=== PATIENT | male | born 1990 | race Caucasian/White ===

== ENCOUNTER 2020-09-02 18:26 | Outpatient (REF) | payer OTHER, SELFPAY ==
--- NOTE | 2020-09-02 18:29 | MR_ITS ---
EXAMINATION: MR LUMBAR SPINE WITHOUT CONTRAST CLINICAL INFORMATION: Back pain. Difficulty walking at times. COMPARISON: X-ray from 04/01/2019. TECHNIQUE: MRI of the lumbar spine was obtained using routine sequences without contrast. FINDINGS: VERTEBRAL BODIES AND PARASPINAL STRUCTURES: There is a mild leftward curvature of the lumbar spine. There is significant right lateral disc space narrowing with endplate Schmorl's nodes at L3-L4. Chronic and mild edematous endplate changes also evident at the L3-L4 level which is situated at the apex of the leftward spinal curvature. There is reduced intradiscal signal with mild disc space narrowing at L2-L3. Mildly reduced intradiscal signal also evident at L4-L5 and L5-S1. The remainder of the marrow signal is homogeneous. No anterior subluxations visible. The paraspinal soft tissues are unremarkable. The imaged bony pelvis is normal. CONUS MEDULLARIS AND CAUDA EQUINA: Normal, terminating at the level of L1. No lower cord signal abnormality is seen. The cauda equina nerve roots are normal. SPINAL LEVELS: L1-L2: Well-hydrated normal appearance of the disc without central canal stenosis or foraminal narrowing. L2-L3: Mild retrosubluxation and generalized disc bulge with a shallow, broad-based central disc protrusion mildly impressing upon the ventral thecal sac. No central canal stenosis or significant foraminal narrowing. L3-L4: Retrosubluxation and significant degenerative endplate changes lateralized to the right side. Diffuse disc bulge present with mild facet arthropathy and mild central canal stenosis. A right paracentral disc protrusion distorts the ventral thecal sac and contributes to mass effect upon the right L4 nerve root laterally in the subarticular zone. Osseous spurring and bulging disc result in moderate right foraminal encroachment and mild distortion of the exiting right L3 nerve root. L4-L5: Mild disc degeneration and broad-based, shallow central disc protrusion with an underlying annular fissure/tear. The disc protrusion mildly impresses upon the ventral thecal sac and contributes to mass effect upon the L5 nerve root in the subarticular zones. Hypertrophic facet arthropathy without central canal stenosis. Mild bilateral foraminal narrowing. L5-S1: Posterior annular fissure and mild disc bulge present without central canal stenosis. Hypertrophic facet arthropathy mildly encroaching upon the left subarticular zone. Mild left foraminal narrowing. MR/MR lumbar spine wo con IMPRESSION: Mild leftward curvature of the lumbar spine centered at L3-L4 where there is severe right lateral disc space narrowing and degenerative endplate changes. A right paracentral disc protrusion distorts the ventral thecal sac and results in mass effect upon the right L4 nerve root. Mild central canal stenosis. Bulging disc and osseous spurring with moderate right foraminal encroachment and mild distortion of the right L3 nerve root. Broad-based shallow central disc protrusion with an underlying annular tear at L4-L5. Disc protrusion results in mass effect upon the L5 nerve root in the subarticular zones. Shallow broad-based central disc protrusion at L2-L3 with a mild retrosubluxation. Mild spondylosis at L5-S1 with a posterior disc bulge and underlying annular fissure.
== END 2020-09-02 18:27 | disposition home or self-care (01) ==
LOC: HO.MRI 18:26
PROVIDERS: Visit Provider Physician Assistant
DX: M47.16 Other spondylosis with myelopathy, lumbar region (principal)
CPT/HCPCS: 72148

== ENCOUNTER 2020-10-23 09:33 | Outpatient (REF) | payer OTHER, SELFPAY | END 2020-10-23 09:34 | disposition home or self-care (01) | LOC: HO.LAB 09:33 | PROVIDERS: PCP Physician Assistant; Visit Provider Internal Medicine | DX: Z20.828 Contact with and (suspected) exposure to other viral communicable diseases (principal) | CPT/HCPCS: 36415; C9803; U0003 ==

== ENCOUNTER 2020-10-31 12:42 | Outpatient (REF) | payer OTHER, SELFPAY | END 2020-10-31 12:43 | disposition home or self-care (01) | LOC: HO.LAB 12:42 | PROVIDERS: PCP Physician Assistant; Visit Provider Internal Medicine | DX: Z20.822 Contact with and (suspected) exposure to COVID-19 (principal) | CPT/HCPCS: 36415; C9803; U0003 ==

== ENCOUNTER 2020-11-10 10:28 | Outpatient (REF) | payer OTHER, SELFPAY | END 2020-11-10 10:29 | disposition home or self-care (01) | LOC: HO.LAB 10:28 | PROVIDERS: Visit Provider Internal Medicine | DX: Z20.822 Contact with and (suspected) exposure to COVID-19 (principal) | CPT/HCPCS: 36415; C9803; U0003 ==

== ENCOUNTER 2022-03-08 16:52 | Outpatient (RCR) | payer OTHER, SELFPAY ==
--- NOTE | 2022-03-08 18:18 | MHC.PT.EP ---
[facility] [place] Office [place] Office [place] Office [address] Christoph Bonilla [address] [phone] F: [phone] F: [phone] F: [phone] F: [phone] Physical Therapy Plan of Care Date of Evaluation: Date of Surgery: December 2020 Diagnosis: unspecified thoracic, thoracolumbar and lumbosacral spine Assessment: pt does present to physical therapy w/ MRI (+) multi-level disc impairments and mild lumbar scoliosis; however, his symptoms do also appear to be related to poor habitual SI posturing. pt presents to physical therapy with pain, decreased range of motion, decreased strength, impaired functional mobility, impaired postural awareness, and gait deviations. pt is a good candidate for skilled PT due to age, potential remediation of impairments, typical disease/condition progression and prognosis, comorbidities, and motivation. pt would benefit from tailored strengthening and stretching exercise program, functional training, gait training, postural re-training, neuromuscular re-education, modalities as needed for pain, equipment safety demonstration. Frequency and Duration: The patient will be seen 2x/wk for 4 wks Short Term Goals: pt will be I w/ HEP to promote self-management of condition. pt will demo proper sitting posture w/ lumbar roll to promote neutral spine w/ seated ADLs. pt will demo I log rolling technique for supine<>sit transfer to reduce stress on spine w/ bed mobility. 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 pt will report a statistically significant improvement in self-reported outcome measure, Jean-Pierre, to promote return to PLOF. pt will demo proper lifting mechanics from floor to chest of 20# w/o verbal cueing to promote neutral spine w/ work-related lifting. Treatment Plan: Modalities to reduce pain, spasms and effusion. Manual therapy to restore motion and function. Therapeutic exercise to improve strength and flexibility. Neuromuscular re-education for posture and balance. Therapeutic activities to return to functional activities of daily living. Electronically signed by: Alecia Islas PT, DPT Please sign and return to therapist. Thank you for your referral.
--- NOTE | 2022-03-30 13:35 | MHC.PT.DC ---
[facility] [place] Office [place] Office [place] Office [address] Christoph Bonilla [address] [phone] F: [phone] F: [phone] F: [phone] F: [phone] Physical Therapy Discharge Report Diagnosis: unspecified thoracic, thoracolumbar and lumbosacral spine Date of Surgery: December 2020 Date of Evaluation: 03/08/22 Date of Discharge: 03/30/22 Treatments to Date: 1 Cancellations to Date: 2 No Shows to Date: 2 Discharge Status: Visit Non-compliance Discharge Summary: The patient has not attended any scheduled visits after his initial evaluation. He did call our office to inform us he tested positive for COVID-19 but has not followed up to schedule anything after his quarantine. He is being discharged for visit non-compliance. Electronically signed by: Alecia Islas PT, DPT Please sign and return to therapist. Thank you for your referral.
== END 2022-03-30 13:35 | disposition home or self-care (01) ==
LOC: HO.PT 16:52
PROVIDERS: PCP Physician Assistant; Visit Provider Physician Assistant
DX: M51.9 Unspecified thoracic, thoracolumbar and lumbosacral intervertebral disc disorder (principal)
CPT/HCPCS: 97110; 97162

== ENCOUNTER 2022-04-29 09:41 | Outpatient (REF) | payer OTHER, SELFPAY ==
--- NOTE | 2022-04-29 09:43 | EMG_ITS ---
Bilateral median and ulnar motor and sensory studies were performed. Bilateral radial and sensory studies were performed and paraspinal muscles were tested. IMPRESSION: 1. [id number] bilateral ulnar neuropathy across cubital tunnel. 2. Mild right and [id number] left median neuropathy across carpal tunnel. MD MO Aguiar/NOLA / [id number]
== END 2022-04-29 09:42 | disposition home or self-care (01) ==
LOC: HO.NEURO 09:41
PROVIDERS: Visit Provider Physician Assistant
DX: R20.2 Paresthesia of skin (principal)
CPT/HCPCS: 95886; 95911

== ENCOUNTER → 2022-06-23 08:06 | Outpatient (BNVA) | payer OTHER, SELFPAY | PROVIDERS: PCP Physician Assistant; Visit Provider Orthopaedic Surgery | DX: G56.23 Lesion of ulnar nerve, bilateral upper limbs (principal); G56.03 Carpal tunnel syndrome, bilateral upper limbs | CPT/HCPCS: 99202 ==

== ENCOUNTER 2023-12-14 12:44 | Outpatient (REF) | payer SELFPAY ==
[2023-12-14 14:36] LABS: Amphetamine Screen Urine Not Detected (Not Detect); Barbiturates, Urine Not Detected (Not Detect); Benzodiazepines Screen Urine Not Detected (Not Detect); Cannabinoid Screen Urine POSITIVE (Not Detect); Cocaine Screen Urine Not Detected (Not Detect); Fentanyl, urine Not Detected (Not Detect); Opiate Screen Urine Not Detected (Not Detect); Phencyclidine Screen Urine Not Detected (Not Detect)
== END 2023-12-14 12:45 | disposition home or self-care (01) ==
LOC: HO.LAB 12:44
PROVIDERS: PCP Physician Assistant; Visit Provider Physician Assistant
DX: Z02.89 Encounter for other administrative examinations (principal)
CPT/HCPCS: 80307

== ENCOUNTER 2024-10-11 23:33 | Emergency (ER) | payer SELFPAY ==
--- NOTE | ~2024-10-11 | XR_ITS ---
EXAMINATION: XR LUMBOSACRAL SPINE CLINICAL INFORMATION: Fall and back pain COMPARISON: April 01, 2019. TECHNIQUE: Three views of the lumbosacral spine. FINDINGS: The alignment is within normal limits. There is mild L3-4 disc degenerative change with loss of disc space, endplate change and osteophyte formation. The remaining disc spaces are maintained. The bone mineralization is normal. There is no fracture. Soft tissues are unremarkable. XR/XR lumbar spine 2-3V IMPRESSION: Mild degenerative disc disease at L3-4. A similar finding was seen previously. No fracture. Electronically signed by: Cameron Reeder MD 10/12/2024 03:49 AM EST
[2024-10-11 23:41] VITALS: BP 130/80; PULSE 54; O2SAT 99
[2024-10-11 23:43] VITALS: BP 135/72; PULSE 45; RESP 16; TEMP 36.9; O2SAT 100; BMI 27.2
[2024-10-11 23:56] VITALS: BP 135/72; PULSE 45; RESP 16; TEMP 36.9; O2SAT 100
--- NOTE | 2024-10-12 01:45 | ED_ITS ---
HPI - Fall General Chief Complaint: Fall Stated Complaint: Fall, Lower back & leg pain, numb leg, hx sciatica Time Seen by Provider: 10/12/24 01:21 Source: patient and EMS Mode of arrival: EMS Limitations: no limitations History of Present Illness ED Provider: DR. Elizabeth HPI Narrative: 34 year old male history of chronic back pain came in for evaluation after he fell at home for worsening of low back pain and increase numbness in the right lower extremity. No urinary incontinence, no stool incontinence. No head injury, no neck injury no other complaints. Related Data Previous Rx's ?Medication ?Instructions ?Recorded albuterol sulfate 90 mcg/actuation 1 inh inhalation QID 30 days #8.5 01/25/22 aerosol inhaler (Ventolin HFA) grams lidocaine 5 % topical patch 1 patch topical DAILY 30 days #30 01/06/23 ea amoxicillin 500 mg capsule 1,000 mg (2 x 500 mg) PO Q8H 5 01/24/23 days #30 caps naproxen 500 mg tablet,delayed 500 mg PO BID PRN pain 14 days #28 06/28/23 release tabs naproxen 500 mg tablet 500 mg PO BID PRN pain #14 tabs 10/12/24 oxycodone 5 mg tablet 5 mg PO BID PRN pain #7 tabs 10/12/24 Allergies Allergy/AdvReac Type Severity Reaction Status Date / Time No Known Allergies Allergy Verified 10/11/24 23:45 Review of Systems Review of Systems: All other systems are reviewed and are negative Constitutional: Reports as per HPI and Reports no additional constitutional complaints Eyes: Reports as per HPI and Reports no additional eye complaints Reports system reviewed and no additional complaints, except as documented Cardiovascular: Reports as per HPI and Reports no additional cardiovascular complaints Respiratory: Reports as per HPI and Reports no additional respiratory complaints Gastrointestinal: Reports as per HPI and Reports no additional gastrointestinal complaints Genitourinary: Reports no additional female genitourinary complaints Musculoskeletal: Reports no additional musculoskeletal complaints Skin/Breast: Reports system reviewed and no additional complaints, except as docu Psychiatric: Reports no additional psychiatric complaints Endocrine: Reports no additional endocrine complaints Hematologic/Lymphatic: Reports no additional hematologic/lymphatic complaints Allergic/Immunologic: Reports no additional allergic/immunologic complaints Reports system reviewed and no additional complaints, except as documented and Reports Abnormal speech present [facility] Past Medical History Surgical History History of back surgery Family History Family History Father No problems noted. Mother No problems noted. Brother No problems noted. Sister No problems noted. Social History Social History Housing: House Alcohol intake: current Alcohol intake frequency: holidays/special occasions only Alcohol type: other Patient Tobacco Use Status: Never used Tobacco Smoked in Last 30 Days: No e-Cigarette/Vaping Use: Never Used Substance Use Type: Marijuana Substance Use Frequency: Daily Last Used Substance: Just Prior to Admission Any prior treatment program specific to substance use: No Advance Directives: No Do you have a plan to hurt others: No Plan service: No Current occupational status: employed Current occupation: [employer] Current occupational exposures/hazards: No Cognitive needs: No Hearing needs: No Vision needs: No Physical Exam Vital Signs: Vital Signs: Last Vital Signs Temp 98.4 F 10/12/24 02:45 Pulse 52 10/12/24 02:45 Resp 16 10/12/24 02:45 BP 118/68 10/12/24 02:45 Pulse Ox 97 10/12/24 01:52 O2 Del Method Room Air 10/12/24 01:52 BMI result Body Mass Index 27.2 Vital signs have been reviewed and appear to be correct. Blood pressure elevated. Heart rate normal. Respiratory rate normal. Temperature normal. Oxygen saturation normal. Appearance: Alert. Oriented X3. No acute distress. Head: Normal external exam. Normocephalic. Atraumatic. No River signs noted. No raccoon eyes noted Eyes: PERRLA. EOMI. Conjunctiva and sclera normal. Eyelids normal. ENT: TM's Normal. Pharynx normal. Uvula midline. Moist mucous membranes. No trismus noted. No drooling noted. No muffled voice noted. Neck: Normal inspection. Neck supple. FROM. No adenopathy. Thyroid Normal. No meningeal signs. No neck mass noted. CVS: Normal heart rate and rhythm. Heart sound normal. No murmurs noted. Pulses normal throughout. Respiratory: No respiratory distress. Painless inspiration. Breath sounds normal. No wheezes/rales/rhonchi noted. Chest nontender. No accessory muscle usage noted or decreased air movement noted. Abdomen: Soft and nontender. Bowel sounds normal in all 4 quadrants. No distention noted. No organomegaly noted. No visible injury noted. Back: No CVA tenderness. Full range of motion noted. Skin: Skin warm and dry. Normal skin color. Normal skin turgor. No rashes/lesions/lacerations noted. Extremities: No lower extremity edema. Extremities exhibit normal range of motion. Extremities nontender. Neuro: Mental status: Normal attention, orientation, memory, and affect. Cranial nerves: Pupils are equal, round and reactive to light, EOMI, visual dsouza are fall, face is symmetric, facial sensations are normal. Motor examination normal muscle tone, strength to 4 extremities. DTR are +2, planter's are flexor. Sensory exam; normal coordination, no ataxia, gait stable. Cerebellar exam: Ybzqwp-hc-mjwi and hwit-jj-jbww is normal. Extrapyramidal system: No tremors, no rigidity with normal facial expressions. Pronator drift not present Course Reevaluation(s) Reevaluation #1: Back pain after fall, improved with Toradol able to get out bed, normal neuro exam. Time: 04:18 Medications Administered Discontinued Medications Generic Name Dose Route Start Last Admin Trade Name Freq PRN Reason Stop Dose Admin Ketorolac Tromethamine 30 mg 10/12/24 01:44 10/12/24 02:09 Ketorolac Tromethamine 30 Mg/Ml Vial IM 10/12/24 01:45 30 mg ONCE ONE Administration Medical Decision Making Differential Diagnosis Differential Diagnoses: The differential diagnosis associated with the presentation includes (Lumbar spine fracture, muscular pain, lower back contusion) Admission/Observation Consideration of admission/observation: Escalation of care including admiss ion/observation considered Independent Interpretation I performed an independent interpretation of an: Plain X-Ray (Lumbar spine: Mild degenerative disc disease at L3-4. A similar finding was seen previously.) Radiology Impression Discussion of test interpretation with radiology: I have reviewed the radiologist's reading. Discharge Plan Discharge Clinical Impression: Lumbar contusion Patient Disposition: Home, Self-Care Instructions: Contusion in Adults (ED) Prescriptions: New naproxen 500 mg tablet 500 mg PO BID PRN (Reason: pain) Qty: 14 0RF oxycodone 5 mg tablet 5 mg PO BID PRN (Reason: pain) Qty: 7 0RF Rx Instructions: Partial Fill upon patient request. No Action lidocaine 5 % adhesive patch,medicated 1 patch topical DAILY 30 Days Qty: 30 0RF Rx Instructions: leave on most painful area for up to 12 hrs naproxen 500 mg tablet,delayed release (DR/EC) 500 mg PO BID PRN (Reason: pain) 14 Days Qty: 28 1RF albuterol sulfate [Ventolin HFA] 90 mcg/actuation HFA aerosol inhaler 1 inh inhalation QID 30 Days Qty: 8.5 1RF amoxicillin 500 mg capsule 1,000 mg PO Q8H 5 Days Qty: 30 0RF Referrals: Cuco Ledesma PA-C [Primary Care Provider] - Print Language: Hungarian
[2024-10-12 01:52] VITALS: BP 118/68; PULSE 52; RESP 16; TEMP 36.9; O2SAT 97
[2024-10-12] MEDS: Ketorolac Tromethamine 30 MG/ML VIAL IM (02:09)
[2024-10-12 02:45] VITALS: BP 118/68; PULSE 52; RESP 16; TEMP 36.9
--- NOTE | 2024-10-12 04:01 | PC.NURSE ---
provider with pt. and pt states he still feels numbness to his lower right leg.
[2024-10-12] MEDS: oxyCODONE HCl Immed Release 5 MG TABLET PO (04:24)
[2024-10-12 04:25] VITALS: BP 117/60; PULSE 63; RESP 16; TEMP 36.6; O2SAT 97
[2024-10-12 05:07] VITALS: BP 117/60; PULSE 63; RESP 16; TEMP 36.6; O2SAT 97
== END 2024-10-12 05:09 | disposition home or self-care (01) ==
PROVIDERS: Emergency Provider Emergency Medicine; PCP Physician Assistant
DX: S30.0XXA Contusion of lower back and pelvis, initial encounter (principal); R20.0 Anesthesia of skin; W19.XXXA Unspecified fall, initial encounter; Y93.89 Activity, other specified; Y92.89 Other specified places as the place of occurrence of the external cause; Y99.8 Other external cause status
CPT/HCPCS: 72100; 96372; 99284; J1885

== ENCOUNTER 2024-10-24 08:16 | Outpatient (AMB) | payer SELFPAY ==
--- NOTE | 2024-10-24 08:27 | MHC.PC.OV ---
Vital Signs 10/24/24 08:28 Height 5 ft 10 in Weight 181 lb BMI 26.0 BP 112/76 Blood Pressure Location Lt brachial Position Sitting Pulse 50 Pulse Source Pulse Oximeter Pulse Oximetry (%) 98 Oxygen Delivery Method Room Air Intake Visit Reasons: OV [employer] Required: No Accompanied by: Self / Same As Patient Allergies No Known Allergies Allergy (Verified 10/24/24 08:36) Medication List - Last Reconciled 10/24/24 by Cuco Ledesma PA-C albuterol sulfate 90 mcg/actuation (Ventolin HFA) 1 inh inhalation QID 30 days lidocaine 5% 1 patch topical DAILY 30 days naproxen 500 mg PO BID PRN naproxen 500 mg PO BID PRN 14 days oxycodone 5 mg PO BID PRN prednisone 10 mg PO DIRECTED 9 days Tobacco use date assessed: 10/24/24 Dental Screening Dental Screen Date: 10/24/24 Did you have a dental visit in the last 12 months?: No Did you have a dental problem in the last 6 months where you did not have access to dental care?: No Was dental information given to patient?: No HPI OV HPI Details Patient is a 34-year-old male here today for an ER follow-up visit. He reports a few weeks ago having some lower back pain and tried to step over his daughters to a chest and felt immediate pain and weakness in his right lower extremity. He was seen at the ER and x-rays taken showing a chronic disc issue at L3 of 4 to which he has had surgery on in the past. He reports he continues to right lower extremity numbness particular in the lateral side of his calf and his entire right foot. Has been doing his own physical therapy and stretching at the gym though has not been able to reduce his numbness and tingling in his right lower extremity. He reports no particular pain in his low back though continues to the numbness and tingling that worries him as he has not been able to be physically active or due full duty at his physically demanding job. [facility] Surgical History History of back surgery Family History Father No problems noted. Mother No problems noted. Brother No problems noted. Sister No problems noted. Social History Housing: House Alcohol intake: current Alcohol intake frequency: holidays/special occasions only Alcohol type: other Patient Tobacco Use Status: Never used Tobacco e-Cigarette/Vaping Use: Never Used Substance Use Type: Marijuana service: No Current occupational status: employed Current occupation: [employer]/ [employer] Current occupational exposures/hazards: No Cognitive needs: No Hearing needs: No Vision needs: No Questionnaire PHQ-9 Over the last 2 weeks, how often have you been bothered by any of the following problems? 1. Little interest or pleasure in doing things: not at all 2. Feeling down, depressed, or hopeless: not at all 3. Trouble falling or staying asleep, or sleeping too much: not at all 4. Feeling tired or having little energy: not at all 5. Poor appetite or overeating: not at all 6. Feeling bad about yourself - or that you are a failure or have let yourself or your family down: not at all 7. Trouble concentrating on things, such as reading the newspaper or watching television: not at all 8. Moving or speaking so slowly that other people could have noticed. Or the opposite - being so fidgety or restless that you have been moving around a lot more than usual: not at all 9. Thoughts that you would be better off or of hurting yourself in some way: not at all Total score: 0 Depression Screening Interpretation: Negative Depression Screening Done: Yes 34385 - PHQ-9 Billing: Yes Source: Developed by Drs. Alfredo Badillo, Leana Nevarez, Prosper Lovett and colleagues, with an educational meghan from [employer]. Thrive Questionnaire Date Thrive assessed: 10/24/24 I am a: Patient What is your living situation today?: I have a steady place to live Within the past 12 months, did the food you bought not last and you didn't have the money to get more?: Never true Within the past 12 months, did you worry whether your food would run out before you got money to buy more?: Never true Do you have trouble paying for medicines?: No Do you have trouble getting transportation to medical appointments?: No Do you have trouble paying your heating and electricity bill?: No Do you have trouble taking care of your child, family member or friend?: No Do you have trouble with day-to-day activities such as bathing, preparing meals, shopping, managing finances, etc.?: No Are you currently unemployed and looking for a job?: No Are you interested in more education?: No Please select the resources that you would like help with: None Currently or been in a relationship where the following occur: No concerns reported THRIVE Score: 0 AUDIT C Alcohol Use Questionnaire (AUDIT-C) 1. How often do you have a drink containing alcohol?: Monthly or less 2. How many drinks containing alcohol do you have on a typical day when you are drinking?: 1 or 2 3. How often do you have six or more drinks on one occasion?: Never Total Score: 1 KISHA-7 AMB Questionnaire KISHA-7 Date KISHA - 7 assessed: 10/24/24 Feeling nervous, anxious, or on edge: 0 = Not at all Not being able to stop or control worryin = Not at all Worrying too much about different things: 0 = Not at all Trouble relaxin = Not at all Being so restless that it is hard to sit still: 0 = Not at all Becoming easily annoyed or irritable: 0 = Not at all Feeling afraid as if something awful might happen: 0 = Not at all Total KISHA-7 score (0-4 normal; 5-9 mild; 10-14 moderate; 15-21 severe): 0 Source: Developed by Drs. Alfredo Badillo, Leana Nevarez, Prosper Lovett and colleagues, with an educational meghan from [employer]. KISHA-7 Assessment Billing KISHA-7 Assessment Tool: KISHA-7 Assessment 24881 Review of Systems Const Denies headache(s) Eyes Denies loss of vision ENT Denies vertigo, Denies dizziness, Denies headache(s) and Denies sore throat Card Denies chest pain, Denies leg edema and Denies lightheadedness Resp Denies cough, Denies hemoptysis and Denies wheezing GI Denies abdominal pain, Denies melena, Denies constipation, Denies diarrhea and Denies vomiting Denies dysuria, Denies urinary frequency and Denies urinary urgency Musc Details: + right lower extremity numbness and tingling Denies arthralgias, Denies joint swelling, Reports numbness and Reports tingling Neuro Denies Abnormal speech present, Denies behavioral changes, Denies vertigo, Denies dizziness, Denies headache(s), Denies loss of vision, Denies memory loss, Reports numbness and Reports tingling Psych Denies anxiety, Denies behavioral changes, Denies depression, Denies memory loss and Denies panic attacks Noel/Lymph Denies easy bleeding and Denies easy bruising Aller/Immun Denies wheezing Physical exam (Primary Care) Vital Signs: Last Vital Signs Pulse 50 10/24/24 08:28 BP 112/76 10/24/24 08:28 Pulse Ox 98 10/24/24 08:28 Oxygen Delivery Method Room Air 10/24/24 08:28 BMI result Body Mass Index 26.0 Tobacco/Smoking Status: Tobacco use Status Tobacco use date assessed 10/24/24 10/24/24 08:31 Patient Tobacco Use Status Never used Tobacco 10/24/24 08:31 e-Cigarette/Vaping Use Never Used 10/24/24 08:31 PHQ-9: PHQ-9 Score PHQ-9: Total score 0 10/24/24 08:35 Depression Screening Interpretation: Negative Thrive Assessment: Date of Thrive Assessment Date Thrive assessed 10/24/24 10/24/24 08:31 Currently or been in a relationship where the following occur: No concerns reported Const General: healthy appearing, no acute distress, alert and awake Nutritional Appearance: well nourished Orientation/consciousness: oriented to person, oriented to place and oriented to time HENMT Ears: TM's normal bilaterally General nose exam: Normal nasal mucous membranes and turbinates present Eyes Conjunctivae: conjunctivae normal Sclerae: sclerae normal Pupils: Equal, round and reactive pupils present Neck Neck: Yes no lymphadenopathy and Yes no JVD Thyroid: Thyroid normal Carotids: no bruits Resp Effort & Inspection: normal respiratory effort and not tachypneic Auscultation: no crackles, no rales, no rhonchi and no wheezes Cardio Rate: regular rate Rhythm: regular rhythm Heart sounds: no murmurs and normal S1 and S2 GI Palpation (GI): Soft to palpation, nontender, no hepatomegaly and no splenomegaly Auscultation: normal bowel sounds Skin General skin exam: no rashes or lesions noted and dry skin Neuro General: oriented to person, oriented to place and oriented to time Cranial nerves: Yes Equal, round and reactive pupils present Speech: No Abnormal speech present Gait exam (Neuro): Normal gait present Motor exam (neuro): no tremor noted Extrem Right upper extremity: full ROM Left upper extremity: full ROM Right lower extremity: full ROM; no edema Left lower extremity: full ROM; no edema Psych Mental Status: mental status grossly normal Speech and movement: Normal speech and movement present Affect: normal affect Attitude: cooperative Thought process: Normal thought process present Coding Level of Care Code Est Pt Level 4 (49587) Diagnoses Lumbar radiculopathy, acute M54.16 Additional Codes KISHA-7 Assessment Billing - KISHA-7 Assessment Tool: KISHA-7 Assessment 13571 ([id number]) PHQ-9 - 94940 - PHQ-9 Billing: Yes ([id number]) Assessment & Plan Assessment & Plan (1) Lumbar radiculopathy, acute: Code(s): M54.16 - Radiculopathy, lumbar region Category: Medical Plan: As per HPI patient has been experiencing what seems to be a disc herniation in the L3-L4- L5-S1 region as he has been having numbness and tingling in the lower right leg. He does exhibit some weakness as well. Will try to get a stat MRI to evaluate for a disc herniation with central stenosis. Would likely benefit from formal physical therapy. Will also set patient up with a prednisone taper to help with inflammation in the lower back Orders: Orders PT Evaluation and Treatment Today M47.16 - Other spondylosis with myelopathy, lumbar region, M51.9 - Unspecified thoracic, thoracolumbar and lumbosacral intervertebral disc disorder Medications: Refilled prednisone Take 3 tablets x3 days, 2 tablets x2 days, 1 tablet x3 days 10 mg PO DIRECTED 9 days 18 tabs 0RF M47.16 - Other spondylosis with myelopathy, lumbar region
[2024-10-24 08:28] VITALS: BP 112/76; PULSE 50; O2SAT 98; BMI 26.0
== END 2024-10-24 08:58 | disposition home or self-care (01) ==
PROVIDERS: PCP Physician Assistant; Visit Provider Physician Assistant
DX: M54.16 Radiculopathy, lumbar region (principal)

== ENCOUNTER → 2024-10-24 08:16 | Outpatient (BNVA) | payer SELFPAY | PROVIDERS: PCP Physician Assistant; Visit Provider Physician Assistant | DX: M54.16 Radiculopathy, lumbar region (principal) | CPT/HCPCS: 96127; 99212 ==

== ENCOUNTER 2024-11-08 10:04 | Outpatient (AMB) | payer SELFPAY ==
--- NOTE | 2024-11-08 10:17 | MHC.PC.OV ---
Vital Signs 11/08/24 10:18 Height 5 ft 10 in Weight 179 lb 6 oz BMI 25.7 BP 120/68 Blood Pressure Location Lt brachial Position Sitting Respiration 16 Pulse 61 Pulse Source Pulse Oximeter Temp 97.3 F Temp Source Temporal Artery Scan Pulse Oximetry (%) 97 Oxygen Delivery Method Room Air Intake Visit Reasons: annual exam Allergies No Known Allergies Allergy (Verified 11/08/24 10:23) Medication List - Last Reconciled 11/08/24 by Cuco Ledesma PA-C albuterol sulfate 90 mcg/actuation (Ventolin HFA) 1 inh inhalation QID 30 days lidocaine 5% 1 patch topical DAILY 30 days naproxen 500 mg PO BID PRN naproxen 500 mg PO BID PRN 14 days oxycodone 5 mg PO BID PRN prednisone 10 mg PO DIRECTED 9 days prednisone 10 mg PO DIRECTED 9 days Tobacco use date assessed: 10/24/24 Dental Screening Dental Screen Date: 10/24/24 HPI annual exam HPI Details Patient is a 34 year male here today for annual physical.? Patient's past medical history significant for asthma,? lumbar disc disease. He has previously done a surgical procedure in his back which has significantly helped though continues to have intermittent pain exacerbated with physical exertion. He does use lidocaine patches and muscle relaxers on a p.r.n. basis for his back. He unfortunately suffered a fall about a month ago injuring his back again. Unfortunately has right lower extremity numbness and weakness. Has been trying to stretch out the gym though has not been very effective. MRI has been ordered though denied by insurance stating he needs to do physical therapy . Asthma:? Will controlled very limited use of his albuterol inhaler. .. .. Vaccine: Declines flu vaccine. UTD With TDap and COVID vaccine, Considering PCV - 20 PFSH Surgical History History of back surgery Family History Father No problems noted. Mother No problems noted. Brother No problems noted. Sister No problems noted. Social History Housing: House Alcohol intake: current Alcohol intake frequency: holidays/special occasions only Alcohol type: other Patient Tobacco Use Status: Never used Tobacco e-Cigarette/Vaping Use: Never Used Substance Use Type: Marijuana service: No Current occupational status: employed Current occupation: [employer]/ [employer] Current occupational exposures/hazards: No Cognitive needs: No Hearing needs: No Vision needs: No Questionnaire PHQ-9 Over the last 2 weeks, how often have you been bothered by any of the following problems? 1. Little interest or pleasure in doing things: not at all 2. Feeling down, depressed, or hopeless: not at all 3. Trouble falling or staying asleep, or sleeping too much: not at all 4. Feeling tired or having little energy: not at all 5. Poor appetite or overeating: not at all 6. Feeling bad about yourself - or that you are a failure or have let yourself or your family down: not at all 7. Trouble concentrating on things, such as reading the newspaper or watching television: not at all 8. Moving or speaking so slowly that other people could have noticed. Or the opposite - being so fidgety or restless that you have been moving around a lot more than usual: not at all 9. Thoughts that you would be better off or of hurting yourself in some way: not at all Total score: 0 Depression Screening Interpretation: Negative Depression Screening Done: Yes 92268 - PHQ-9 Billing: Yes Source: Developed by Drs. Alfredo Badillo, Leana Nevarez, Prosper Lovett and colleagues, with an educational meghan from [email or web address]. Thrive Questionnaire Date Thrive assessed: 11/08/24 I am a: Patient What is your living situation today?: I have a steady place to live Within the past 12 months, did the food you bought not last and you didn't have the money to get more?: Never true Within the past 12 months, did you worry whether your food would run out before you got money to buy more?: Never true Do you have trouble paying for medicines?: No Do you have trouble getting transportation to medical appointments?: No Do you have trouble paying your heating and electricity bill?: No Do you have trouble taking care of your child, family member or friend?: No Do you have trouble with day-to-day activities such as bathing, preparing meals, shopping, managing finances, etc.?: No Are you currently unemployed and looking for a job?: No Are you interested in more education?: No Please select the resources that you would like help with: None Currently or been in a relationship where the following occur: No concerns reported THRIVE Score: 0 AUDIT C Alcohol Use Questionnaire (AUDIT-C) 1. How often do you have a drink containing alcohol?: Monthly or less 2. How many drinks containing alcohol do you have on a typical day when you are drinking?: 1 or 2 3. How often do you have six or more drinks on one occasion?: Never Total Score: 1 KISHA-7 AMB Questionnaire KISHA-7 Date KISHA - 7 assessed: 11/08/24 Feeling nervous, anxious, or on edge: 0 = Not at all Not being able to stop or control worryin = Not at all Worrying too much about different things: 0 = Not at all Trouble relaxin = Not at all Being so restless that it is hard to sit still: 0 = Not at all Becoming easily annoyed or irritable: 0 = Not at all Feeling afraid as if something awful might happen: 0 = Not at all Total KISHA-7 score (0-4 normal; 5-9 mild; 10-14 moderate; 15-21 severe): 0 Source: Developed by Drs. Alfredo Badillo, Leana Nevarez, Prosper Lovett and colleagues, with an educational meghan from [email or web address]. KISHA-7 Assessment Billing KISHA-7 Assessment Tool: KISHA-7 Assessment 08153 ACT Questionnaire In the past 4 weeks, how much of the time did your asthma keep you from getting as much done at work, school or at home?: None of the time During the past 4 weeks, how often have you had shortness of breath?: Not at all During the past 4 weeks, how often did your asthma symptoms wake you up at night or earlier than usual in the morning?: Not at all During the past 4 weeks, how often have you had to use your rescue inhaler or nebulizer medication?: Not at all How would you rate your asthma control during the past 4 weeks?: Completely controlled ACT Interpretation: Negative Score: 25 Review of Systems Const Denies body aches, Denies chills, Denies excessive sweating, Denies fatigue, Denies fever(s), Denies headache(s) and Reports weakness Eyes Denies blurry vision ENT Denies dysphagia, Denies vertigo, Denies dizziness, Denies headache(s), Denies hearing loss and Denies tinnitus Card Denies chest pain, Denies chest pain with activity, Denies syncope, Denies irregular heart rhythm and Denies dyspnea Resp Denies chest congestion, Denies cough, Denies hemoptysis, Denies dyspnea and Denies wheezing GI Denies abdominal pain, Denies melena, Denies hematochezia, Denies coffee ground emesis, Denies dysphagia, Denies diarrhea, Denies nausea and Denies vomiting Denies difficulty urinating, Denies dysuria, Denies urinary frequency, Denies urinary hesitancy and Denies urinary urgency Musc Denies arthralgias, Denies limited range of motion, Denies muscle cramps and Denies muscle weakness Skin/Breast Denies rash and Denies skin ulcer Neuro Details: + numbness over right calf and toes Denies Abnormal speech present, Denies confusion, Denies vertigo, Denies dizziness, Denies syncope, Denies headache(s), Denies memory loss, Denies seizure-like activity and Reports weakness Psych Denies anxiety, Denies confusion, Denies depression, Denies memory loss, Denies panic attacks and Denies paranoia Endo Denies excessive sweating, Denies fatigue, Denies flushing, Denies polydipsia and Denies polyuria Aller/Immun Denies wheezing Physical exam (Primary Care) Vital Signs: Last Vital Signs Temp 97.3 F 11/08/24 10:18 Pulse 61 11/08/24 10:18 Resp 16 11/08/24 10:18 BP 120/68 11/08/24 10:18 Pulse Ox 97 11/08/24 10:18 Oxygen Delivery Method Room Air 11/08/24 10:18 BMI result Body Mass Index 25.7 Tobacco/Smoking Status: Tobacco use Status Tobacco use date assessed 10/24/24 11/08/24 10:21 Patient Tobacco Use Status Never used Tobacco 11/08/24 10:21 e-Cigarette/Vaping Use Never Used 11/08/24 10:21 PHQ-9: PHQ-9 Score PHQ-9: Total score 0 11/08/24 10:21 Depression Screening Interpretation: Negative Thrive Assessment: Date of Thrive Assessment Date Thrive assessed 11/08/24 11/08/24 10:21 Currently or been in a relationship where the following occur: No concerns reported Const General: cooperative, comfortable, no acute distress, alert and awake; No confusion Orientation/consciousness: oriented to person, oriented to place, patient oriented x3 and No confusion HENMT Head: Yes normocephalic Ears: external ears normal and TM's normal bilaterally Face and sinus: No sinus tenderness Mouth: Normal oral and palatal mucosa present and tongue normal Teeth and gingiva: dentition normal and gingiva normal Throat: Yes posterior oropharynx normal, Yes tonsils normal and Yes uvula midline Eyes Conjunctivae: conjunctivae normal Sclerae: sclerae normal Pupils: Equal, round and reactive pupils present EOM: EOMs intact bilaterally Direct Ophthalmoscopy: No no photophobia Neck Neck: Yes no lymphadenopathy, No tender and Yes no JVD Thyroid: Thyroid normal Carotids: no bruits Chest Chest palpation & inspection: no tenderness Resp Effort & Inspection: normal respiratory effort, no audible wheezes, not labored and no stridor Auscultation: no crackles, no rales, no rhonchi and no wheezes Cardio Jugular venous distension: no JVD Rate: regular rate, not bradycardic and not tachycardic Rhythm: regular rhythm Bruits: no carotid bruits Peripheral pulses: Peripheral pulses 2+ throughout GI Inspection: Yes normal to inspection, No abdominal wall ecchymosis and No visible herniation Palpation (GI): Soft to palpation, nontender, no guarding, not rigid and No hepatosplenomegaly present Auscultation: normoactive bowel sounds General: Yes no CVA tenderness Back/Spine/Pelvis Back: no CVA tenderness and No back tenderness Cervical Spine: cervical ROM normal Thoracic/Lumbar Spine: thoracic and lumbar spine normal to inspection, straight leg raise negative bilaterally, No thoraco-lumbar ROM limited and No lumbar spinal tenderness Skin Lesions: no lesions Rashes: no rashes Wounds: no wounds Neuro General: oriented to person, oriented to place, patient oriented x3, CN's II-XI intact bilaterally and No confusion Cranial nerves: Yes Equal, round and reactive pupils present and Yes Normal accommodation reflex present Cognition (Neuro): normal cognition Speech: No Abnormal speech present Gait exam (Neuro): Normal gait present Motor exam (neuro): 5/5 motor strength present throughout Extrem Other: + DECREASED SENSATION TO LIGHT TOUCH OVER RIGHT LATERAL CALF AND RIGHT TOES Right upper extremity: full ROM; no cyanosis Left upper extremity: full ROM; no cyanosis Right lower extremity: no edema Left lower extremity: no edema Psych Appearance: grossly normal Mental Status: mental status grossly normal Affect: normal affect Attitude: cooperative Thought process: Normal thought process present Coding Level of Care Code Est Pt Prev Care 18-39y(71859) Diagnoses Annual physical exam Z00.00 Lumbar radiculopathy, acute M54.16 Additional Codes KISHA-7 Assessment Billing - KISHA-7 Assessment Tool: KISHA-7 Assessment 35056 ([id number]) PHQ-9 - 34922 - PHQ-9 Billing: Yes ([id number]) Asthma Control Questionnaire - ACT Interpretation: Negative ([id number]) Assessment & Plan Assessment & Plan (1) Annual physical exam: Code(s): Z00.00 - Encounter for general adult medical examination without abnormal findings Category: Medical Plan: As per HPI (2) Lumbar radiculopathy, acute: Code(s): M54.16 - Radiculopathy, lumbar region Category: Medical Plan: Continues to have right lower extremity numbness and weakness. Has been trying to do his home stretches though has not made much progress. Tried MRI of lower lumbar spine with and without contrast due to his previous history of lumbar spine surgery in 2020 though has been denied by insurance. Needs to do at least 6 sessions with physical therapy and show no clinical benefit. Has upcoming appointment with physical therapy. Will also refer to pain management for pain reduction modality. Still somewhat on light duty at work Orders: Orders Lipid Panel Today E78.00 - Pure hypercholesterolemia, unspecified Comprehensive [place]. Panel Fast Today E78.00 - Pure hypercholesterolemia, unspecified Complete Blood Count no Diff Today J45.20 - Mild intermittent asthma, uncomplicated Medications: Refilled prednisone Take 3 tablets x3 days, 2 tablets x2 days, 1 tablet x3 days 10 mg PO DIRECTED 9 days 18 tabs 0RF M47.16 - Other spondylosis with myelopathy, lumbar region
[2024-11-08 10:18] VITALS: BP 120/68; PULSE 61; RESP 16; TEMP 36.3; O2SAT 97; BMI 25.7
== END 2024-11-08 10:43 | disposition home or self-care (01) ==
PROVIDERS: PCP Physician Assistant; Visit Provider Physician Assistant
DX: Z00.00 Encounter for general adult medical examination without abnormal findings (principal); M54.16 Radiculopathy, lumbar region

== ENCOUNTER → 2024-11-08 10:04 | Outpatient (BNVA) | payer SELFPAY | PROVIDERS: PCP Physician Assistant; Visit Provider Physician Assistant | DX: Z00.00 Encounter for general adult medical examination without abnormal findings (principal); M54.16 Radiculopathy, lumbar region; J45.909 Unspecified asthma, uncomplicated | CPT/HCPCS: 96127; 96160 ==

== ENCOUNTER 2024-11-14 08:26 | Outpatient (AMB) | payer OTHER, SELFPAY ==
--- NOTE | 2024-11-14 08:30 | MHC.OFFVIS ---
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 He is status post lumbar surgery approximately 5 years ago. He is not sure exactly what procedure was done or what level. Reports approximately 1 month ago he fell and re-injured his back. Since then he has been suffering with lower back pain not radiates down the right leg to the foot. He endorses numbness of the lateral right leg down to the foot and also some cramping of the calf muscle. Recently evaluated by primary care doctor and given naproxen, prednisone and referral for physical therapy Scheduled to start PT tomorrow Some improvement with naproxen. Recent x-ray was reviewed, results as per below Denies red flag symptoms including new loss of bowel, bladder or saddle anesthesia Pain today is rated as a 5/10, constant and worse during the day Pain is exacerbated by bending, moving and his work. In terms of muscle damage condition is described as aching, numb Pain is negatively impacting patient's enjoyment of life, general activity, mood, normal work, recreational activities. Denies anticoagulant use Denies implantable devices, pacemaker or defibrillator [facility] Surgical History History of back surgery Family History Father No problems noted. Mother No problems noted. Brother No problems noted. Sister No problems noted. Social History Housing: House Alcohol intake: current Alcohol intake frequency: holidays/special occasions only Alcohol type: other Patient Tobacco Use Status: Never used Tobacco e-Cigarette/Vaping Use: Never Used Substance Use Type: Marijuana service: No Current occupational status: employed Current occupation: [employer]/ [employer] Current occupational exposures/hazards: No Cognitive needs: No Hearing needs: No Vision needs: No Review of Systems Const All systems reviewed & are unremarkable except as noted in HPI and below Physical Exam Vital Signs: Last Vital Signs Pulse 50 11/14/24 08:39 BP 146/83 H 11/14/24 08:39 BMI result Body Mass Index 26.3 General: awake, alert, oriented. Answers questions appropriately. Fully engaged in examination. Skin: warm, dry, intact HEENT: Normocephalic. Hearing intact. Cardiac: External chest normal in appearance. Respiratory: No cough, audible wheezing or stridor. Abdomen: without gross distension. MS: No obvious swelling or deformities. Able to stand on bilateral tiptoes and bilateral heels.? Able to transition from sit to stand unassisted. Ambulates with bilaterally normal heel strike and toe off SLR positive on the right. Negative footdrop, negative clonus Valsalva negative Nontender over bilateral PSIS Motion intact. Discomfort with forward flexion. Pain improved with lumbar extension Minimally tender over midline lumbar vertebrae and lower paraspinal muscles Well-healed surgical scar over lumbar midline. Neurological: Oriented to person, place, time and situation. Thought process intact. No gait abnormalities appreciated. Psychiatric: Appropriate mood and affect. Good judgment and insight. Results Reviewed Results Reviewed: 10/12/24 XR/XR lumbar spine 2-3V FINDINGS: The alignment is within normal limits. There is mild L3-4 disc degenerative change with loss of disc space, endplate change and osteophyte formation. The remaining disc spaces are maintained. The bone mineralization is normal. There is no fracture. Soft tissues are unremarkable. IMPRESSION: Mild degenerative disc disease at L3-4. A similar finding was seen previously. No fracture. Assessment & Plan Assessment & Plan (1) Lumbar radiculopathy, acute: Code(s): M54.16 - Radiculopathy, lumbar region Category: Medical (2) Paresthesia of right leg: Code(s): R20.2 - Paresthesia of skin Category: Medical (3) Post laminectomy syndrome: Code(s): M96.1 - Postlaminectomy syndrome, not elsewhere classified Category: Medical Plan Patient presented to the office today for evaluation management of his acute/chronic lower back pain History, physical exam and provocative testing consistent with lumbar radiculopathy EMG ordered for evaluation MRI with without contrast ordered to evaluate neural integrity given patient's reported right lower extremity paresthesia. Continue with physical therapy as planned All questions and concerns were answered, patient agrees with the plan. Follow up after EMG/MRI, sooner if needed Orders: Orders MR lumbar spine wo/w con Today M54.16 - Radiculopathy, lumbar region, M96.1 - Postlaminectomy syndrome, not elsewhere classified, R20.2 - Paresthesia of skin NE electromyogram (EMG) Today R20.2 - Paresthesia of skin Coding Level of Care Code New Pt Level 4 (36955) Complex EM visit Add On G2211 Diagnoses Lumbar radiculopathy, acute M54.16 Paresthesia of right leg R20.2 Post laminectomy syndrome M96.1
[2024-11-14 08:39] VITALS: BP 146/83; PULSE 50; BMI 26.3
== END 2024-11-14 08:58 | disposition home or self-care (01) ==
PROVIDERS: PCP Physician Assistant; Referring Provider Physician Assistant; Visit Provider Registered Nurse Emergency
DX: M54.16 Radiculopathy, lumbar region (principal); R20.2 Paresthesia of skin; M96.1 Postlaminectomy syndrome, not elsewhere classified
CPT/HCPCS: 99204; G2211

== ENCOUNTER → 2024-11-14 08:26 | Outpatient (BNVA) | payer OTHER, SELFPAY | PROVIDERS: PCP Physician Assistant; Referring Provider Physician Assistant; Visit Provider Registered Nurse Emergency | DX: M54.16 Radiculopathy, lumbar region (principal); R20.2 Paresthesia of skin; M96.1 Postlaminectomy syndrome, not elsewhere classified | CPT/HCPCS: 99202 ==

== ENCOUNTER 2024-12-14 13:55 | Outpatient (REF) | payer OTHER, SELFPAY ==
--- NOTE | 2024-12-14 13:58 | EMG_ITS ---
Chief complaint: Lumbar surgery 2020. Was doing well without pain until he fell 10/05/2024. No having pain/numbness from right buttock stand to right foot. Even left side starting to have symptoms. Reason for referral: Evaluate for radiculopathy Referred by: Deb Villatoro NP Procedure done: Right lower extremity NCS/EMG Precautions and/or limitations: Previous lumbar surgery The limb temperature was monitored continuously and remained between 32-36 degrees C during the performance of the NCS. Nerve Conduction Studies Anti Sensory Summary Table ?Stim Site NR Onset (ms) Norm Onset (ms) Peak (ms) Norm Peak (ms) O-P Amp (?V) Norm O-P Amp Site1 Site2 Delta-0 (ms) Dist (cm) Evelio (m/s) Norm Evelio (m/s) Left Sural Anti Sensory (Lat Mall) Calf ? 2.9 3.3 <4.0 7.9 >5.0 Calf Lat Mall 2.9 14.0 48 Right Sural Anti Sensory (Lat Mall) Calf ? 3.0 3.7 <4.0 9.7 >5.0 Calf Lat Mall 3.0 14.0 47 Motor Summary Table ?Stim Site NR Onset (ms) Norm Onset (ms) O-P Amp (mV) Norm O-P Amp iAmp (mV) Amp (1st) (%) Site1 Site2 Delta-0 (ms) Dist (cm) Evelio (m/s) Norm Evelio (m/s) Right Peroneal Motor (Ext Dig Brev) Ankle ? 4.8 <4.0 1.5 >2.5 1.8 100.0 Ankle Ext Dig Brev 4.8 0.0 B Fib ? 12.7 1.4 1.6 93.3 B Fib Ankle 7.9 34.0 43 >40 Poplt ? 13.8 1.4 1.6 93.3 Poplt B Fib 1.1 6.0 55 >40 Right Peroneal Motor (Tib Ant) Fib Head ? 4.2 <4.2 3.1 3.7 100.0 Fib Head Tib Ant 4.2 0.0 Poplit ? 5.0 <5.7 3.3 3.9 106.5 Poplit Fib Head 0.8 6.0 75 >40.5 Right Tibial Motor (Abd Álvarez Brev) Ankle ? 3.8 <5 15.5 >2.5 20.8 100.0 Ankle Abd Álvarez Brev 3.8 0.0 Knee ? 12.0 11.8 15.8 76.1 Knee Ankle 8.2 40.0 49 >40 EMG ?Side Muscle Nerve Root Ins Act Fibs Psw Amp Dur Poly Recrt Int Pat Comment Right AbdHallucis MedPlantar S1-2 Nml Nml Nml Nml Nml 0 Nml Complete Right AntTibialis Dp Br Peron L4-5 Nml Nml Nml Nml Nml 0 Nml Complete Right PostTibialis Tibial L5, S1 Incr 1+ 1+ Nml Nml 0 Nml Complete Right MedGastroc Tibial S1-2 Nml Nml Nml Nml Nml 0 Nml Complete Right VastusMed Femoral L2-4 Nml Nml Nml Nml Nml 0 Nml Complete Right BicepsFemS Sciatic L5-S1 Nml Nml Nml Nml Nml 0 Nml Complete Right GluteusMed SupGluteal L4-S1 Incr 1+ 1+ Nml Nml 0 Nml Complete FINDINGS: Right peroneal nerve showed prolonged distal latency, small amplitude and normal conduction velocity. No conduction block across fibular neck. All other nerves tested were within normal. Concentric needle EMG was performed in selected muscles of the right lower extremity. Study revealed signs of electric abnormalities as shown in the table above. Right posterior tibialis and gluteus medius showed increased insertional activity, PSWs and fibrillations. IMPRESSION: 1. This is an abnormal study. 2. There is electrodiagnostic evidence for right acute/subacute right L5-S1 radiculopathy. 3. There is no electrodiagnostic evidence for peroneal neuropathy, tibial neuropathy. lumbosacral plexopathy, or peripheral neuropathy. Thank you for your kind referral. Lisy Al MD, MARYBETH Board Certified, [place] Board [employer] and Rehabilitation (ABPMR) Board Certified, [place] Board of Electrodiagnostic Medicine (ABEM) [place] [id number] [facility]
== END 2024-12-14 13:56 | disposition home or self-care (01) ==
LOC: HO.NEURO 13:55
PROVIDERS: PCP Physician Assistant; Visit Provider Registered Nurse Emergency
DX: R20.2 Paresthesia of skin (principal)
CPT/HCPCS: 95886; 95908

== ENCOUNTER → 2024-12-14 13:58 | Outpatient (BNV) | payer OTHER, SELFPAY | PROVIDERS: PCP Physician Assistant; Visit Provider Physical Medicine & Rehabilitation | DX: M54.16 Radiculopathy, lumbar region (principal) | CPT/HCPCS: 95886; 95909 ==

== ENCOUNTER 2024-12-20 08:41 | Outpatient (AMB) | payer OTHER, SELFPAY ==
[2024-12-20 08:43] VITALS: BP 130/80; PULSE 56; O2SAT 99; BMI 25.7
--- NOTE | 2024-12-20 08:43 | A.OFFPC_ITS ---
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 Patient's past medical history significant for asthma,? lumbar disc disease. He has previously done a surgical procedure in his back which has significantly helped though continues to have intermittent pain exacerbated with physical e xertion. He does use lidocaine patches and oxycodone \on a p.r.n. basis for his back. Lumbar disc disease: He is status post lumbar diskectomy in 2020. As of September he has been having more lumbar spine pain and numbness and decreased strength in his right lower extremity. Has followed up with [facility] management whom recommends getting a EMG and a lumbar spine MRI. He has been recently in physical therapy though did not feel it is effective for reducing his radiculopathy down his right lower extremity. Continues on light duty at work. Recent EMG showing ---> There is electrodiagnostic evidence for right acute/subacute right L5-S1 radiculopathy. [facility] Surgical History History of back surgery Family History Father No problems noted. Mother No problems noted. Brother No problems noted. Sister No problems noted. Social History Housing: House Alcohol intake: current Alcohol intake frequency: holidays/special occasions only Alcohol type: other Patient Tobacco Use Status: Never used Tobacco e-Cigarette/Vaping Use: Never Used Second Hand Smoke Exposure: No Substance Use Type: Marijuana service: No Current occupational status: employed Current occupation: [employer]/ [employer] Current occupational exposures/hazards: No Cognitive needs: No Hearing needs: No Vision needs: No Questionnaire Thrive Questionnaire Date Thrive assessed: 11/08/24 I am a: Patient What is your living situation today?: I have a steady place to live Within the past 12 months, did the food you bought not last and you didn't have the money to get more?: Never true Within the past 12 months, did you worry whether your food would run out before you got money to buy more?: Never true Do you have trouble paying for medicines?: No Do you have trouble getting transportation to medical appointments?: No Do you have trouble paying your heating and electricity bill?: No Do you have trouble taking care of your child, family member or friend?: No Do you have trouble with day-to-day activities such as bathing, preparing meals, shopping, managing finances, etc.?: No Are you currently unemployed and looking for a job?: No Are you interested in more education?: No Please select the resources that you would like help with: None Currently or been in a relationship where the following occur: No concerns reported THRIVE Score: 0 KISHA-7 AMB Questionnaire KISHA-7 Date KISHA - 7 assessed: 11/08/24 Source: Developed by Drs. Alfredo Badillo, Leana Nevarez, Prosper Lovett and colleagues, with an educational meghan from [employer]. Review of Systems Const Denies headache(s) Eyes Denies loss of vision ENT Denies vertigo, Denies dizziness, Denies headache(s) and Denies sore throat Card Denies chest pain, Denies leg edema and Denies lightheadedness Resp Denies cough, Denies hemoptysis and Denies wheezing GI Denies abdominal pain, Denies melena, Denies constipation, Denies diarrhea and Denies vomiting Denies dysuria, Denies urinary frequency and Denies urinary urgency Musc Denies arthralgias, Denies joint swelling, Denies numbness and Denies tingling Neuro Denies Abnormal speech present, Denies behavioral changes, Denies vertigo, Denies dizziness, Denies headache(s), Denies loss of vision, Denies memory loss, Denies numbness and Denies tingling Psych Denies anxiety, Denies behavioral changes, Denies depression, Denies memory loss and Denies panic attacks Noel/Lymph Denies easy bleeding and Denies easy bruising Aller/Immun Denies wheezing Physical exam (Primary Care) Vital Signs: Last Vital Signs Pulse 56 12/20/24 08:43 BP 130/80 12/20/24 08:43 Pulse Ox 99 12/20/24 08:43 Oxygen Delivery Method Room Air 12/20/24 08:43 BMI result Body Mass Index 25.7 Tobacco/Smoking Status: Tobacco use Status Tobacco use date assessed 10/24/24 12/20/24 08:47 Patient Tobacco Use Status Never used Tobacco 12/20/24 08:47 e-Cigarette/Vaping Use Never Used 12/20/24 08:47 Thrive Assessment: Date of Thrive Assessment Date Thrive assessed 11/08/24 12/20/24 08:47 Currently or been in a relationship where the following occur: No concerns reported Const General: healthy appearing, no acute distress, alert and awake Nutritional Appearance: well nourished Orientation/consciousness: oriented to person, oriented to place and oriented to time HENMT Ears: TM's normal bilaterally General nose exam: Normal nasal mucous membranes and turbinates present Eyes Conjunctivae: conjunctivae normal Sclerae: sclerae normal Pupils: Equal, round and reactive pupils present Neck Neck: Yes no lymphadenopathy and Yes no JVD Thyroid: Thyroid normal Carotids: no bruits Resp Effort & Inspection: normal respiratory effort and not tachypneic Auscultation: no crackles, no rales, no rhonchi and no wheezes Cardio Rate: regular rate Rhythm: regular rhythm Heart sounds: no murmurs and normal S1 and S2 GI Palpation (GI): Soft to palpation, nontender, no hepatomegaly and no splenomegaly Auscultation: normal bowel sounds Back/Spine/Pelvis Other: LUMBAR SPINE LIMITED RANGE OF MOTION DUE TO PAIN AND STIFFNESS. RIGHT LOWER EXTREMITY 3/5 STRENGTH COMPARED TO LEFT UPPER EXTREMITY 5/5 STRENGTH. Skin General skin exam: no rashes or lesions noted and dry skin Neuro General: oriented to person, oriented to place and oriented to time Cranial nerves: Yes Equal, round and reactive pupils present Speech: No Abnormal speech present Gait exam (Neuro): Normal gait present Motor exam (neuro): no tremor noted Extrem Right upper extremity: full ROM Left upper extremity: full ROM Right lower extremity: full ROM; no edema Left lower extremity: full ROM; no edema Psych Mental Status: mental status grossly normal Speech and movement: Normal speech and movement present Affect: normal affect Attitude: cooperative Thought process: Normal thought process present Coding Level of Care Code Est Pt Level 4 (59738) Diagnoses Lumbar radiculopathy, acute M54.16 Post laminectomy syndrome M96.1 Assessment & Plan Assessment & Plan (1) Lumbar radiculopathy, acute: Code(s): M54.16 - Radiculopathy, lumbar region Category: Medical Plan: As per HPI patient continues with lower lumbar spine pain and particular right lower extremity weakness and decreased strength. Is currently physical therapy though was not making much progress. Patient is in desperate need of getting MRI to evaluate further for the need of repeat lumbar surgery. Again EMG showing L5-S1 nerve impingement. (2) Post laminectomy syndrome: Code(s): M96.1 - Postlaminectomy syndrome, not elsewhere classified Category: Medical Plan: As per HPI Orders: Orders MR lumbar spine wo/w con Today M54.16 - Radiculopathy, lumbar region Medications: New lidocaine 5% leave on most painful area for up to 12 hrs 1 patch topical DAILY 30 days 30 ea 1RF M54.16 - Radiculopathy, lumbar region oxycodone Partial Fill upon patient request. 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
== END 2024-12-20 09:28 | disposition home or self-care (01) ==
PROVIDERS: PCP Physician Assistant; Visit Provider Physician Assistant
DX: M54.16 Radiculopathy, lumbar region (principal); M96.1 Postlaminectomy syndrome, not elsewhere classified

== ENCOUNTER → 2024-12-20 08:41 | Outpatient (BNVA) | payer SELFPAY | PROVIDERS: PCP Physician Assistant; Visit Provider Physician Assistant | DX: M54.16 Radiculopathy, lumbar region (principal); M96.1 Postlaminectomy syndrome, not elsewhere classified | CPT/HCPCS: 99212 ==

== ENCOUNTER 2024-12-31 07:00 | Outpatient (RCR) | payer OTHER, SELFPAY ==
--- NOTE | 2024-11-15 15:02 | MHC.PT.EP ---
[facility] [place] Office [place] Office [place] Office [address] Christoph Bonilla [address] [phone] F: [phone] F: [phone] F: [phone] F: [phone] Physical Therapy Plan of Care Date of Evaluation: 11/15/24 Date of Surgery: n/a Diagnosis: thoracolumbar/lumbosacral intervertebral disc disease Assessment: Patient is a 34 year old male presenting to PT with complaints of pain in his low back. Pt reports onset of pain began 10/12/2024 due to tripping and falling over an automan. He presents today with radicular sx, pain, lumbar ROM, core strength, hip strength, absent reflexes on R. 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 Pt expresses half-way goal of reducing pain, and is motivated to work towards this in PT. Clinical presentation today is most consistent with signs and sx associated with low back pain and pt will benefit from skilled PT 2 week x 4 weeks to address the following problems and impairments noted upon evaluation: radicular sx, pain, lumbar ROM, core strength, hip strength. These problems limit the patient with the following functional activities: sitting, bending, ADLs, work. The prescribed treatment plan of care is medically necessary. Co-morbidities of hx lumbar microdiscectomy were identified and taken into considerations of plan of care. Pt was educated on HEP, role of PT, prognosis, POC. Frequency and Duration: The patient will be seen 2 x week x 4 weeks Short Term Goals: Pt will demonstrate centralization of sx in 2 weeks. Pt will demonstrate improved lumbar ROM to pain free in 2 weeks. Pt will demonstrate improved reflexes on R in 2 weeks. Pt will demonstrate improved hip MMT strength by 1/3 grade in 2 weeks. [employer] Goals: Pt will demonstrate improved Jean-Pierre score by 10% in 4 weeks for improved functional mobility. Pt will demonstrate ability to sit with min to no pain in 4 weeks for return to PLOF. Pt will demonstrate ability to bend and lift with min to no pain in in 4 weeks for improved tolerance to work. Treatment Plan: Modalities to reduce pain, spasms and effusion. Manual therapy to restore motion and function. Therapeutic exercise to improve strength and flexibility. Neuromuscular re-education for posture and balance. Therapeutic activities to return to functional activities of daily living. Electronically signed by: Darby Hurtado PT, DPT, ATC Please sign and return to therapist. Thank you for your referral.
--- NOTE | 2025-01-22 15:27 | MHC.PT.DC ---
[facility] [place] Office [place] Office [place] Office [address] Christoph Bonilla [address] [phone] F: [phone] F: [phone] F: [phone] F: [phone] Physical Therapy Discharge Report Diagnosis: thoracolumbar/lumbosacral intervertebral disc disease Date of Surgery: n/a Date of Evaluation: 11/15/24 Date of Discharge: 01/22/25 Treatments to Date: 11 Cancellations to Date: 2 No Shows to Date: 1 Discharge Status: Recommend MD Follow-up Discharge Summary: Pt missed his last PT appointment. Pt has felt essentially no improvements since start of care and actually is worse as his L leg is now affected. His R leg continues to be numb with absent reflexes. He has sharp pain on L anytime he puts weight through his leg. We have exhausted all measures in skilled PT including, manual, tens, traction, and exercises. There is nothing else PT can address at this point as there is no progress. It appears pt was finally able to get an MRI and subsequently schedule for a visit with a spine doctor. Pt to be d/c and follow up with MD. Electronically signed by: Darby Hurtado, PT, DPT, ATC Please sign and return to therapist. Thank you for your referral.
== END 2025-01-22 15:27 | disposition home or self-care (01) ==
LOC: HO.PTCHIC 07:00
PROVIDERS: PCP Physician Assistant; Visit Provider Physician Assistant
DX: M51.9 Unspecified thoracic, thoracolumbar and lumbosacral intervertebral disc disorder (principal); M47.16 Other spondylosis with myelopathy, lumbar region
CPT/HCPCS: 97012; 97014; 97110; 97140; 97161

== ENCOUNTER 2025-01-10 08:48 | Outpatient (AMB) | payer OTHER, SELFPAY ==
--- NOTE | 2025-01-10 08:46 | MHC.PC.OV ---
Intake Visit Reasons: f/u Telehealth ( back issues) Allergies No Known Allergies Allergy (Verified 12/20/24 09:06) Medication List - Last Reconciled 01/10/25 by Cuco Ledesma PA-C albuterol sulfate 90 mcg/actuation (Ventolin HFA) 1 inh inhalation QID 30 days lidocaine 5% 1 patch topical DAILY 30 days naproxen 500 mg PO BID PRN oxycodone 5 mg PO Q8H PRN 4 days prednisone 10 mg PO DIRECTED 9 days Tobacco use date assessed: 10/24/24 Dental Screening Dental Screen Date: 10/24/24 HPI f/u Telehealth ( back issues) HPI Details Patient is a 34 year male being evaluated today via telephone only. ? Patient's past medical history significant for asthma,? lumbar disc disease. He has previously done a surgical procedure in his back which has significantly helped though continues to have intermittent pain exacerbated with physical exertion. He does use lidocaine patches and oxycodone \on a p.r.n. basis for his back. Lumbar disc disease: He is status post lumbar diskectomy in 2020. As of September he has been having more lumbar spine pain and numbness and decreased strength in his right lower extremity. Has followed up with [place] pain management whom recommends getting a EMG and a lumbar spine MRI. He has been recently in physical therapy though did not feel it is effective for reducing his radiculopathy down his right lower extremity. Continues on light duty at work. Did hit MRI approved for 01/12/2025. Will consider further evaluation with neurosurgeon depending on MRI results Recent EMG showing ---> There is electrodiagnostic evidence for right acute/subacute right L5-S1 radiculopathy. [facility] Surgical History History of back surgery Family History Father No problems noted. Mother No problems noted. Brother No problems noted. Sister No problems noted. Social History Housing: House Alcohol intake: current Alcohol intake frequency: holidays/special occasions only Alcohol type: other Patient Tobacco Use Status: Never used Tobacco e-Cigarette/Vaping Use: Never Used Second Hand Smoke Exposure: No Substance Use Type: Marijuana service: No Current occupational status: employed Current occupation: [employer]/ [employer] Current occupational exposures/hazards: No Cognitive needs: No Hearing needs: No Vision needs: No Questionnaire Thrive Questionnaire Date Thrive assessed: 11/08/24 I am a: Patient What is your living situation today?: I have a steady place to live Within the past 12 months, did the food you bought not last and you didn't have the money to get more?: Never true Within the past 12 months, did you worry whether your food would run out before you got money to buy more?: Never true Do you have trouble paying for medicines?: No Do you have trouble getting transportation to medical appointments?: No Do you have trouble paying your heating and electricity bill?: No Do you have trouble taking care of your child, family member or friend?: No Do you have trouble with day-to-day activities such as bathing, preparing meals, shopping, managing finances, etc.?: No Are you currently unemployed and looking for a job?: No Are you interested in more education?: No Please select the resources that you would like help with: None Currently or been in a relationship where the following occur: No concerns reported THRIVE Score: 0 KISHA-7 AMB Questionnaire KISHA-7 Date KISHA - 7 assessed: 11/08/24 Source: Developed by Drs. Alfredo Badillo, Leana Nevarez, Prosper Lovett and colleagues, with an educational meghan from [employer]. Review of Systems Const Denies headache(s) Eyes Denies loss of vision ENT Denies vertigo, Denies dizziness, Denies headache(s) and Denies sore throat Card Denies chest pain, Denies leg edema and Denies lightheadedness Resp Denies cough, Denies hemoptysis and Denies wheezing GI Denies abdominal pain, Denies melena, Denies constipation, Denies diarrhea and Denies vomiting Denies dysuria, Denies urinary frequency and Denies urinary urgency Musc Details: + RIGHT LOWER EXTREMITY WEAKNESS Reports back pain, Denies arthralgias, Denies joint swelling, Denies numbness and Denies tingling Neuro Denies behavioral changes, Denies vertigo, Denies dizziness, Denies headache(s), Denies loss of vision, Denies memory loss, Denies numbness and Denies tingling Psych Denies anxiety, Denies behavioral changes, Denies depression, Denies memory loss and Denies panic attacks Noel/Lymph Denies easy bleeding and Denies easy bruising Aller/Immun Denies wheezing Physical exam (Primary Care) Tobacco/Smoking Status: Tobacco use Status Tobacco use date assessed 10/24/24 01/10/25 08:47 Patient Tobacco Use Status Never used Tobacco 01/10/25 08:47 e-Cigarette/Vaping Use Never Used 01/10/25 08:47 Thrive Assessment: Date of Thrive Assessment Date Thrive assessed 11/08/24 01/10/25 08:47 Currently or been in a relationship where the following occur: No concerns reported Telehealth Telehealth Telehealth Platform: Telephone Location of provider rendering services: practice address Location of patient: address on file Patient Identification confirmed using: Name, : Yes Telehealth method: voice only Patient verbally consented to treatment: Yes Patient verbally consented to billing insurance company: Yes Patient informed of any privacy concerns related to visit: Yes Minutes spent on Phone/Video with Pt.: 10 Coding Level of Care Code Tele Est Pt Level 3 (32161) Diagnoses Lumbar radiculopathy, acute M54.16 Post laminectomy syndrome M96.1 Assessment & Plan Assessment & Plan (1) Lumbar radiculopathy, acute: Code(s): M54.16 - Radiculopathy, lumbar region Category: Medical Plan: As per HPI patient continues with lower lumbar spine pain and particular right lower extremity weakness and decreased strength. He has finished full course of physical therapy and has not made much progress , still suffers with lower extremity weakness. Has been using pain medication from time to time. He reports his pain is manageable though has been only doing limited physical activity at work. Patient is in desperate need of getting MRI to evaluate further for the need of repeat lumbar surgery.. Again EMG showing L5-S1 nerve impingement. Has MRI scheduled for January 12 2025 for evaluation, will consider neurosurgeon evaluation depending on MRI results (2) Post laminectomy syndrome: Code(s): M96.1 - Postlaminectomy syndrome, not elsewhere classified Category: Medical Plan: As per HPI
== END 2025-01-10 10:19 | disposition home or self-care (01) ==
LOC: HO.HMCH 08:48
PROVIDERS: PCP Physician Assistant; Visit Provider Physician Assistant
DX: M54.16 Radiculopathy, lumbar region (principal); M96.1 Postlaminectomy syndrome, not elsewhere classified

== ENCOUNTER → 2025-01-10 08:48 | Outpatient (BNVA) | payer OTHER, SELFPAY | PROVIDERS: PCP Physician Assistant; Visit Provider Physician Assistant ==

== ENCOUNTER 2025-01-12 16:05 | Outpatient (REF) | payer OTHER, SELFPAY ==
--- NOTE | ~2025-01-12 | MR_ITS ---
CLINICAL HISTORY: M54.16 - Radiculopathy, lumbar region LBP, left groin and left leg pain, right leg numbness. S/p fall in 09/2024. S/p micro discectomy in 2020 MR lumbar spine without contrast. COMPARISON: None FINDINGS: Normal alignment of the anterior and posterior elements without evidence of subluxation. Vertebral heights are maintained. Marrow signal is benign. The conus terminates at superior endplate of L1 and is otherwise unremarkable. Visualized portions of the sacrum are normal. L5-S1: Desiccation of the disc. Posterior disc annular tear. Right central/left paracentral and foraminal disc protrusion measuring 5 mm. Moderate left neural foraminal narrowing. L4-L5: Desiccation of the disc. Large central posterior disc bulge measuring 7 mm. This abuts the traversing L5 nerve roots. There is spinal canal stenosis measuring 5 mm. Mild left neural foraminal narrowing. L3-L4: Anterior marginal osteophytes. Desiccation of the disc. Loss of disc space height. Mild posterior disc bulge. Facet joint arthrosis. Mild right neural foraminal narrowing. Mild spinal canal stenosis. L2-L3: Desiccation of the disc. Loss of disc space height. Mild broad-based posterior disc bulge. Posterior disc annular tear. Mild spinal canal stenosis. No significant neural foraminal narrowing. L1-L2: Intervertebral disc is normal in height. No significant disc bulge or central canal stenosis. The visualized paraspinal musculature and retroperitoneal soft tissues are unremarkable. IMPRESSION: 1. Large central disc bulge at L4-5 abuts the traversing L5 nerve roots and causes severe spinal canal stenosis at L4-5. 3. Mild spinal canal stenosis at L2-3 and L3-4. 4. Moderate multilevel degenerative changes of the lumbar spine with multilevel neural foraminal narrowing most pronounced on the left at L4-5. This document has been electronically signed by: Spencer Maurice MD on 01/12/2025 17:50:32
[2025-01-12] MEDS: gadobutroL 10 ML VIAL IVPUSH (17:11)
== END 2025-01-12 16:06 | disposition home or self-care (01) ==
LOC: HO.MRI 16:05
PROVIDERS: PCP Physician Assistant; Visit Provider Physician Assistant
DX: M54.16 Radiculopathy, lumbar region (principal)
CPT/HCPCS: 72158; A9585

== ENCOUNTER → 2025-01-12 16:05 | Outpatient (BNV) | payer OTHER, SELFPAY | PROVIDERS: PCP Physician Assistant; Visit Provider Radiology Diagnostic Radiology | DX: M54.16 Radiculopathy, lumbar region (principal) | CPT/HCPCS: 72158 ==

== ENCOUNTER 2025-01-17 08:53 | Outpatient (AMB) | payer OTHER, SELFPAY ==
--- NOTE | 2025-01-17 08:57 | HO.SPINEOV ---
Vital Signs 01/17/25 09:00 Height 5 ft 10 in Weight 179 lb BMI 25.7 Intake Visit Reasons: LBP Urgent refeerral Intake Note: Mr. Corley is here today c/o Low back pain that radiates down to both legs. [employer] Required: No Allergies No Known Allergies Allergy (Verified 01/17/25 09:01) Physical Exam Vital Signs: BMI result Body Mass Index 25.7 Assessment & Plan Assessment & Plan (1) Lumbar disc herniation: Code(s): M51.26 - Other intervertebral disc displacement, lumbar region Category: Medical Plan Dear Cuco, Thank you for referring Mr Corley to our office today. This is a very nice 34-year-old gentleman with a previous history of a right L3-[address]Mckay rocha in 2020, presents after a fall on 10/12/2024. He tripped over an Ottoman and fell onto his back. At that time, he could barely get off the ground and had a lot of trouble moving, ended up in the emergency room. He was experiencing back pain and bilateral numbness of both of his legs with severe left hip and leg pain. He was given x-rays, treated expectantly, underwent conservative treatment in the form of medication trials including lidocaine patches, naproxen, prednisone, oxycodone, as well he underwent 6 weeks of physical therapy. Unfortunately he is not having any improvement in his symptoms despite the conservative management and he underwent an MRI showing a large herniated disc at L4-5 causing central canal stenosis. He does not report any cauda equina symptoms. PMH: Back surgery in 2020, other than that he has no medical history. Social hx: He does not smoke cigarettes, he quit smoking marijuana about a month ago and does not drink alcohol Medications: Lidocaine patch, prednisone p.r.n., naproxen p.r.n. and oxycodone p.r.n. Allergies: None Physical exam: He is able to stand up out of a chair on his own, he walks with an antalgic gait, tandem gait testing is intact and motor exam reveals no focal motor deficits. Diminished reflexes at the Achilles. Positive straight leg raise at about 25 degrees. Imaging review: Lumbar MRI done at [place] shows large central disc herniation at L4-5 causing moderate to severe canal stenosis. Postsurgical changes at L3-4. Small central annular tear with disc bulge at L5-S1 Impression: 34-year-old male previous history of right L3-4 microdiskectomy done by in 2020 presents for evaluation 3-4 months of centralized back pain, bilateral lower extremity numbness and severe left hip pain and leg pain that gets worse as the day goes on. He has been through conservative management now including tincture of time, medication trials and physical therapy. His MRI shows a large herniated central disc at L4-5. There is moderate to severe central canal stenosis. He does not have any cauda equina symptoms. However, given the persistent numbness and the intensity of the pain, I am going to recommend he have a lumbar microdiskectomy. I will review the case with Dr. Boo, but I have tentatively scheduled him for 02/07/2025 Pt was given risk and benefits of surgery including but not limited to infection, hematoma , nerve injury,durotomy, weakness,bowel/bladder injury, persistent pain, recurrent herniated disc as well as the option to continue with conservative treatment and patient wishes to proceed with surgery. Pt is aware they should stop their motrin, aspirin 7 days prior to surgery. All questions were answered to the best of our ability. If there is anything about this patients medical history that we have overlooked or concerns you have about us proceeding with surgery we would appreciate any input you can offer. Thank you for allowing us to care for your patient. The total time spent with this visit with this patient was 45 minutes reviewing history, physical exam, lumbar imaging review, and implementation of treatment plan or further diagnostic testing Rajan Boo MD,PhD [facility] Coding Level of Care Code New Pt Level 4 (81483) Diagnoses Lumbar disc herniation M51.26
[2025-01-17 09:00] VITALS: BMI 25.7
== END 2025-01-17 09:23 | disposition home or self-care (01) ==
LOC: HO.HNS 08:54
PROVIDERS: PCP Physician Assistant; Referring Provider Physician Assistant; Visit Provider Physician Assistant
DX: M51.26 Other intervertebral disc displacement, lumbar region (principal)
CPT/HCPCS: 99204

== ENCOUNTER → 2025-01-17 08:53 | Outpatient (BNVA) | payer OTHER, SELFPAY | PROVIDERS: PCP Physician Assistant; Referring Provider Physician Assistant; Visit Provider Physician Assistant | DX: M51.26 Other intervertebral disc displacement, lumbar region (principal) | CPT/HCPCS: 99202 ==

== ENCOUNTER 2025-02-07 08:51 | Day surgery (SDC) | payer OTHER, SELFPAY ==
[2025-01-31 13:31] VITALS: BMI 25.7
--- NOTE | 2025-02-05 14:47 | HO.ANESPROP2 ---
Documented by User: Leigh Chambers NP 02/05/25 14:48 HPI - Anesthesia Eval Consult details Narrative: 34yo M for L4- 5 MLD PMFSH Active Problems Active Problems: All Active Problems Lumbar disc herniation (Acute) Post laminectomy syndrome (Acute) Paresthesia of right leg (Acute) Lumbar radiculopathy, acute (Acute) Encounter for drug screening (Acute) Otitis media (Acute) Carpal tunnel syndrome on both sides (Acute) Cubital tunnel syndrome of both upper extremities (Acute) Hand paresthesia (Acute) Cervicalgia (Acute) PTSD (post-traumatic stress disorder) (Acute) Asthma (Acute) Screening for diabetes mellitus (DM) (Acute) Annual physical exam (Acute) Borderline hypercholesterolemia (Acute) Annular tear of lumbar disc (Acute) Lumbar spondylosis with myelopathy (Acute) Past Medical History Medical History Arthritis Back pain History of cardiac murmur as a child Borderline hypercholesterolemia Asthma PTSD (post-traumatic stress disorder) Post laminectomy syndrome Family History Family History Father No problems noted. Mother No problems noted. Brother No problems noted. Sister No problems noted. Surgical History Surgical History History of back surgery Social History Social History Housing: House Are you a primary healthcare architect to a significant other at home: No Do you presently have visiting nurse or other home services: No Alcohol intake: current Alcohol intake frequency: holidays/special occasions only Alcohol type: other Patient Tobacco Use Status: Never used Tobacco e-Cigarette/Vaping Use: Never Used Second Hand Smoke Exposure: No Use of substances other than those prescribed or required for medical reasons: No Substance Use Type: Marijuana Have you been hit, kicked, punched, or otherwise hurt by someone within the past year? If so, by whom?: No Spiritual Healthcare Practices: no Mu-Ism Healthcare Practices: no Cultural Healthcare Practices: no Are you DNR?: No Advance Directives: No Advance Directives Information Provided: Yes Advance Directives on File: No Poor oral hygiene: No service: No Current occupational status: employed Current occupation: [employer] Current occupational exposures/hazards: No Cognitive needs: No Hearing needs: No Vision needs: No Meds Allergies Allergy/AdvReac Type Severity Reaction Status Date / Time No Known Allergies Allergy Verified 01/17/25 09:01 Exam Height,Weight and Vital Signs: Height 5 ft 10 in Weight 81.193 kg Assessment and Plan Assessment Anesthesia Assessment: Chart Reviewed Documented by User: Cami Polanco MD 02/07/25 09:26 [facility] Past Medical History Medical History Arthritis Back pain History of cardiac murmur as a child Borderline hypercholesterolemia Asthma PTSD (post-traumatic stress disorder) Post laminectomy syndrome Family History Family History Father No problems noted. Mother No problems noted. Brother No problems noted. Sister No problems noted. Family history of problems with anesthesia: No Surgical History Surgical History History of back surgery History of Problems with Anesthesia: No Social History Social History Housing: House Are you a primary healthcare architect to a significant other at home: No Do you presently have visiting nurse or other home services: No Alcohol intake: current Alcohol intake frequency: holidays/special occasions only Alcohol type: other Patient Tobacco Use Status: Never used Tobacco e-Cigarette/Vaping Use: Never Used Second Hand Smoke Exposure: No Use of substances other than those prescribed or required for medical reasons: No Substance Use Type: Marijuana Have you been hit, kicked, punched, or otherwise hurt by someone within the past year? If so, by whom?: No Spiritual Healthcare Practices: no Mu-Ism Healthcare Practices: no Cultural Healthcare Practices: no Are you DNR?: No Advance Directives: No Advance Directives Information Provided: Yes Advance Directives on File: No Poor oral hygiene: No service: No Current occupational status: employed Current occupation: [employer] Current occupational exposures/hazards: No Cognitive needs: No Hearing needs: No Vision needs: No Meds Allergies Allergy/AdvReac Type Severity Reaction Status Date / Time No Known Allergies Allergy Verified 01/17/25 09:01 Exam Airway Mallampati Class: II TM Dist: >3cm Neck ROM: Full Heart: rrr Lungs: cta Assessment and Plan Assessment Anesthesia Assessment: Anesthesia Plan Discussed Final Anesthetic Review Family History of Problems with Anesthesia: No History of Problems with Anesthesia: No NPO: Yes ASA Class: II Final Preanesthetic Review: No Changes in Pt Med Stat, Meds/Allgs Chart Reviewed, Consent Obtained/Reviewed and Anes Risks/Benef Reviewed Patient Risk: Low Procedure Risk: Intermediate Anesthetic Plan Anesthetic Plan: GA Disposition: Standard PACU
[2025-02-07] VITALS (10 sets, daily range): BP systolic 103–128; BP diastolic 46–78; PULSE 51–72; RESP 12–16; TEMP 36.1–36.4; O2SAT 97–100; BMI 26.0
--- NOTE | ~2025-02-07 | FL_ITS ---
EXAMINATION: FL GUIDANCE ONLY HISTORY: L4-5 Microdiscectomy COMPARISON: None available. TECHNIQUE: Fluoroscopy time: Less than 1 minute. Cumulative Dose: 2.07 mGy. DAP: 0.396 mGym2 Images: 1. FINDINGS: A single fluoroscopic spot film of the lumbar spine in the lateral projection demonstrates a probe directed toward the L4-5 intervertebral disc space from a posterior approach. FL/FL guidance in OR IMPRESSION: Fluoroscopy during procedure. Please see procedure report for additional information. Electronically signed by: Alfredo Osman MD 02/08/2025 11:16 AM EDT
[2025-02-07] MEDS: Gabapentin 300 MG CAPSULE PO (09:49)
[2025-02-07] MEDS: methocarbamoL 750 MG TABLET PO (09:49)
[2025-02-07] MEDS: Lactated Ringers 1,000 ML 100 ML IVCONT (09:55)
--- NOTE | 2025-02-07 10:03 | MHC.SHP ---
Pre-Procedural Eval Section A - 24 Hr Update-Section A only Date of Service: 02/07/25 Section B - Complete if H&P > 30 days Chief Complaint: Other intervertebral disc displacement, lumbar reg Details of Present Illness: Bilateral leg pain Allergies: Allergies Allergy/AdvReac Type Severity Reaction Status Date / Time No Known Allergies Allergy Verified 02/07/25 09:36 Review of Systems Sugical H&P ROS: Negative: Constitution, Cardiovascular, Respiratory, Neurological, Psychiatric, Hem-Onc, Allergic/Immunologic, Gastrointestinal, Genitourinary, Musculoskeletal, Integumentary, Endocrine and Eyes/Ears/Nose/Throat Exam Surgical H&P Exam: Normal: HEENT, Normal: Heart, Normal: Lungs, Normal: Extremities, Normal: Abdomen, Normal: Skin and Normal: Neurological Plan Diagnosis/Plan: Unchanged I have reviewed the history and physical and performed a pertinent physical examination on my patient. No changes have occurred unless specified. L4-5 microdiskectomy for bilateral leg symptoms Time Spent With Patient Time: Total time managing care of this patient today ____ minutes.
--- NOTE | 2025-02-07 10:35 | P.CONAN_ITS ---
[facility] Active Problems Active Problems: All Active Problems Lumbar disc herniation (Acute) Post laminectomy syndrome (Acute) Paresthesia of right leg (Acute) Lumbar radiculopathy, acute (Acute) Encounter for drug screening (Acute) Otitis media (Acute) Carpal tunnel syndrome on both sides (Acute) Cubital tunnel syndrome of both upper extremities (Acute) Hand paresthesia (Acute) Cervicalgia (Acute) PTSD (post-traumatic stress disorder) (Acute) Asthma (Acute) Screening for diabetes mellitus (DM) (Acute) Annual physical exam (Acute) Borderline hypercholesterolemia (Acute) Annular tear of lumbar disc (Acute) Lumbar spondylosis with myelopathy (Acute) Past Medical History Medical History Arthritis Back pain History of cardiac murmur as a child Borderline hypercholesterolemia Asthma PTSD (post-traumatic stress disorder) Post laminectomy syndrome Family History Family History Father No problems noted. Mother No problems noted. Brother No problems noted. Sister No problems noted. Family history of problems with anesthesia: No Surgical History Surgical History History of back surgery History of Problems with Anesthesia: No Social History Social History Housing: House Are you a primary acute care nursing assistant to a significant other at home: No Do you presently have visiting nurse or other home services: No Alcohol intake: current Alcohol intake frequency: holidays/special occasions only Alcohol type: other Patient Tobacco Use Status: Never used Tobacco e-Cigarette/Vaping Use: Never Used Second Hand Smoke Exposure: No Use of substances other than those prescribed or required for medical reasons: No Substance Use Type: Marijuana Have you been hit, kicked, punched, or otherwise hurt by someone within the past year? If so, by whom?: No Spiritual Healthcare Practices: no Protestant Healthcare Practices: no Cultural Healthcare Practices: no Are you DNR?: No Advance Directives: No Advance Directives Information Provided: Yes Advance Directives on File: No Poor oral hygiene: No service: No Current occupational status: employed Current occupation: [employer] Current occupational exposures/hazards: No Cognitive needs: No Hearing needs: No Vision needs: No Meds Allergies Allergy/AdvReac Type Severity Reaction Status Date / Time No Known Allergies Allergy Verified 02/07/25 09:36 Active Medications: Current Medications Albuterol Sulfate (Albuterol Sulfate (0.083%) 2.5 Mg/3 Ml Vial.Neb) 2.5 mg INHALE ONCE PRN PRN Reason: Shortness of Breath/Wheezing Fentanyl (Fentanyl Citrate/Pf 100 Mcg/2 Ml Vial) 50 mcg IVPUSH Q5M PRN PRN Reason: Pain, Moderate to Severe (Pain Scale 4-10) Stop: 02/07/25 15:26 Lactated Ringer's (Lr) 1,000 mls @ 100 mls/hr IVCONT .Q10H CHELSIE Last Admin: 02/07/25 09:55 Dose: 100 mls/hr Naloxone HCl (Naloxone Hcl 0.4 Mg/Ml Vial) 0.04 mg IVPUSH Q5M PRN PRN Reason: Excessive sedation or RR < 8 Ondansetron HCl (Ondansetron Hcl 4 Mg/2 Ml Vial) 4 mg IVPUSH ONCE PRN PRN Reason: Nausea and Vomiting Stop: 02/07/25 15:26 Home Medications ?Medication ?Instructions ?Recorded ?Confirmed ?Last Taken ?Type albuterol sulfate 90 mcg/actuation 1 inh inhalation QID PRN asthma 02/07/25 02/07/25 Unknown History aerosol inhaler (Ventolin HFA) prednisone 10 mg tablet 10 mg PO DIRECTED PRN 02/07/25 02/07/25 Unknown History Inflammation Exam Height,Weight and Vital Signs: Height 5 ft 10 in Weight 82.2 kg Last Vital Signs Temp 97.1 F 02/07/25 09:38 Pulse 51 02/07/25 09:38 Resp 16 02/07/25 09:38 BP 122/78 02/07/25 09:38 Pulse Ox 98 02/07/25 09:38 O2 Del Method Room Air 02/07/25 09:38 Airway Mallampati Class: I TM Dist: >3cm Neck ROM: Full Assessment and Plan Assessment Anesthesia Assessment: Anesthesia Plan Discussed and Chart Reviewed Final Anesthetic Review Family History of Problems with Anesthesia: No History of Problems with Anesthesia: No NPO: Yes ASA Class: II Final Preanesthetic Review: No Changes in Pt Med Stat, Meds/Allgs Chart Reviewed, Consent Obtained/Reviewed and Anes Risks/Benef Reviewed Patient Risk: Low Procedure Risk: Intermediate Anesthetic Plan Anesthetic Plan: GA Disposition: Standard PACU
[2025-02-07] MEDS: ceFAZolin Sodium/Dextrose,Iso 2 GM/50 ML PIGGYBACK IV (11:15)
[2025-02-07] MEDS: Acetaminophen 1,000 MG/100 ML PIGGYBACK 400 MG IV (11:15)
--- NOTE | 2025-02-07 11:28 | P.DS_ITS ---
DS: Providers Provider Date of Service: 02/07/25 Date of discharge: 02/07/25 Primary care physician: Cuco Ledesma PA-C Admitting clinician: Adarsh Boo DS: Diagnosis Discharge Diagnosis (1) Lumbar disc herniation: Status: Acute DS: Summary Time Attestation Discharge Coordination Time (in mins): 5 Quality: Safe Use of Opioids Does Pt have an Active Cancer Diagnosis on the Problem List?: No Quality: Stroke Does the patient have a stroke diagnosis?: No Physical Exam Vital Signs: Vital Signs: Last Vital Signs Temp 97.1 F 02/07/25 09:38 Pulse 51 02/07/25 09:38 Resp 16 02/07/25 09:38 BP 122/78 02/07/25 09:38 Pulse Ox 98 02/07/25 09:38 O2 Del Method Room Air 02/07/25 09:38 BMI result Body Mass Index 26.0 Discharge Plan Discharge Patient Disposition: Home, Self-Care Referrals: Cuco Ledesma PA-C [Primary Care Provider] - 1 Week Discharge Medications: New docusate sodium [Colace] 100 mg capsule 100 mg PO BID Qty: 20 0RF oxycodone 5 mg tablet 5 mg PO Q4H PRN (Reason: pain) Qty: 20 0RF Rx Instructions: Partial Fill upon patient request. Continued albuterol sulfate [Ventolin HFA] 90 mcg/actuation HFA aerosol inhaler 1 inh inhalation QID PRN (Reason: asthma) naproxen 500 mg tablet 500 mg PO BID PRN (Reason: pain) Qty: 14 0RF oxycodone 5 mg tablet 5 mg PO Q8H PRN (Reason: pain) 4 Days Qty: 12 0RF Rx Instructions: Partial Fill upon patient request. lidocaine 5 % adhesive patch,medicated 1 patch topical DAILY 30 Days Qty: 30 1RF Rx Instructions: leave on most painful area for up to 12 hrs Discontinued prednisone 10 mg tablet 10 mg PO DIRECTED PRN (Reason: Inflammation) Rx Instructions: Take 3 tablets x3 days, 2 tablets x2 days, 1 tablet x3 days Discharge Orders: Discharge Order (Routine); Ordered 02/07/25 Ordered By: Rajan Haley Diet: Advance to usual diet Activity on Discharge: As tolerated Activity Restrictions/Additional Instructions: After your spinal surgery we ask you to observe the following restrictions/guidelines: YOU HAD A SMALL SPINAL FLUID LEAK SEEN AT THE TIME OF SURGERY. IT IS NORMAL TO EXPERIENCE MILD HEADACHES WHEN THIS HAPPENS. IF YOU EXPERIENCE SEVERE HEADACHES PLEASE CALL OUR OFFICE TO UPDATE US. USUALLY IT WILL GO AWAY IF YOU STAY FLAT IN BED FOR A DAY. IF YOU EXPERIENCE ANY LEAKING FROM YOUR WOUND WHICH LOOKS LIKE CLEAR WATER, WE ASK THAT YOU CALL US RIGHT AWAY. [phone] Activity: It is normal to feel some discomfort as you increase your activity, but that will improve with time. We ask you avoid heavy lifting or acitivities that cause pain. As a general rule, 8lbs is a safe limit for lifting right after surgery. Walk as much as you feel comfortable but not to exhaustion. You will feel extra tired the first few days after surgery. Stay well hydrated. It is OK to walk up and down stairs You may return to driving when you are off narcotics (such as vicodin, oxycodone, dilaudid, etc), and you are back to normal functional capacity. If you have any concerns please check with office before driving. Return to work is specific to each patient and each surgery, so please speak with your doctor/PA at first follow up. Please bring paperwork such as FMLA at that time if you need it filled out. Medications: For optimum pain control, it is best to start with a combination of 500 mg of Tylenol every 4 hours with 600 mg of Motrin every 8 hours, and use narcotics as needed in between for breakthrough pain. We will give you a short supply of narcotics after surgery (usually one weeks worth). If you need more please call the office but do not use more than prescribed. You will need to give our office 48 hours notice if you need narcotics refilled and we do not fill narcotics on weekends or evenings. If you are on a narcotic, it is a good idea to take a stool softener such as colace or senna to avoid constipation If you take blood thinner such as aspirin, Plavix, Coumadin, Effient, Eliquis etc for conditions such as Afib, DVT, Pulmonary embolus, coronary disease, stents etc please speak with your surgeon about specific details as to when you can resume these medications. You can resume NSAIDs on post op day 1 (eg: Motrin, Naproxen, etc). Follow up: Please call the office, , after surgery to arrange a 3 week follow up for wound check. Wound Care: You may remove your dressing on the first day after surgery. ? You have sutures that will need to be removed in 10-14 days. IT IS NORMAL FOR THE WOUND TO OOZE OR BE BLOODY FOR A FEW DAYS AFTER SURGERY. ?IF THIS HAPPENS JUST PLACE NEW DRESSING OVER IT TO AVOID STAINING CLOTHES. You may shower on post op day # 1 We ask that you do not let the water soak the wound. If it does get wet, just towel dry lightly. Please do not scrub your incision or place any type of chemical/ointment on the wound. No tub baths, pools or jacuzzis for one month. If you have any leaking or redness from your wound, or fevers, please call office Print Language: Macedonian
--- NOTE | 2025-02-07 12:39 | P.OP_ITS ---
Operative Note Operative Note Date of Service: 02/07/25 Narrative: Preoperative Diagnosis: L4-5 spinal stenosis/lateral recess stenosis Operation: L4-5 Laminotomy, Partial facetectomy and L4-5 diskectomy with use of microscope Consent Informed Consent was obtained for this operation. I have explained the nature, purpose and benefits of the operation. I have discussed the risks and benefit of the operation including possible complications or adverse events with patient/family. Alternative(s) were discussed with the patient with their relative benefits and risks as well as the consequences of not accepting the operation were included in obtaining consent. Surgeon: LOBITO ARAUJO MD, PHD Procedure Assisted By: Rajan Starr Description of Procedure This patient is suffering from bilateral leg discomfort. An MRI shows moderate central stenosis due to flavum ligament hypertrophy and a central disc herniation.. The patient was offered a decompression. The procedure complications were explained. The patient was consented. The patient was brought to the operating room and endotracheally intubated. The patient was turned in prone position on the Iban frame. Prep and drape was done followed by timeout. The Physician registered dental assistant provided access. A mid lumbar incision was made followed by release of the paravertebral muscle on the left side to expose the L4-5 lamina and facet joints. An intraoperative x-ray was obtained to confirm the correct level. The microscope was brought in. I took over the procedure. The high-speed drill was used to do a left L4-5 laminotomy until flavum ligament was reached. A #2 Kerrison was used to expand the laminotomy near flush to the pedicles and to include a partial facetectomy. The flavum ligament was opened and resected with a #3 Kerrison to decompress the underlying thecal sac. The flavum ligament was removed to decompress the lateral recess and the exiting L5 nerve. Then I retracted the L5 nerve root which exposed a very soft bulging annulus. 15. Blade was used to perform an annulotomy and disc material was removed until the central disc bulge was gone. When I put a nerve hook under the thecal sac I accidentally perforated the dura which resulted in a spinal fluid. DuraGen and tissue call were used to cover the small opening. Valsalva maneuver showed no active leakage. The microscope was removed. Hemostasis was done. The physician registered dental assistant close the incision in 3 layers with a running stitch for the skin. An OpSite with Tegaderm was used to cover the incision. All sponge needle counts were correct. Patient was extubated and transported in stable is to recovery room. Anesthesia: General Estimated Blood Loss (ml): 25 Complications: None Duration of Surgery: Under 60 Minutes Postoperative Plan: Discharge to home
[2025-02-07] MEDS: fentaNYL citrate/PF 100 MCG/2 ML VIAL 50 MCG IVPUSH ×2 (13:10→13:15)
== END 2025-02-07 14:52 | disposition home or self-care (01) ==
PROVIDERS: PCP Physician Assistant; Visit Provider Neurological Surgery
PROC: (CPT 63047; principal; 2025-02-07 11:40)
DX: M51.26 Other intervertebral disc displacement, lumbar region (principal); M48.061 Spinal stenosis, lumbar region without neurogenic claudication; R20.0 Anesthesia of skin; G97.41 Accidental puncture or laceration of dura during a procedure; Y65.8 Other specified misadventures during surgical and medical care; Y92.234 Operating room of hospital as the place of occurrence of the external cause; Z79.1 Long term (current) use of non-steroidal anti-inflammatories (NSAID); Z79.52 Long term (current) use of systemic steroids; Z79.899 Other long term (current) drug therapy; Z98.890 Other specified postprocedural states
CPT/HCPCS: 63047; C1763; C9250; J0131; J0690; J1100; J1885; J2003; J2250; J2405; J2704; J3010

== ENCOUNTER → 2025-02-07 08:51 | Outpatient (BNV) | payer OTHER, SELFPAY | PROVIDERS: PCP Physician Assistant; Visit Provider Neurological Surgery | DX: M51.26 Other intervertebral disc displacement, lumbar region (principal); M48.061 Spinal stenosis, lumbar region without neurogenic claudication | CPT/HCPCS: 63047; 99499 ==

== ENCOUNTER 2025-02-18 14:30 | Outpatient (AMB) | payer OTHER, SELFPAY ==
--- NOTE | 2025-02-18 14:32 | HO.SPINEOV ---
Intake Visit Reasons: Suture Removal Intake Note: Mr. Corley is here today to have his sutures removed. Agricultural Purchasing Agent Required: No Allergies No Known Allergies Allergy (Verified 02/07/25 09:36) Assessment & Plan Assessment & Plan (1) S/P lumbar microdiscectomy: Code(s): Z98.890 - Other specified postprocedural states Category: Medical Plan Operation: L4-5 Laminotomy, Partial facetectomy and L4-5 diskectomy Mervin is a 34-year-old male who underwent L4-[address] Boo a couple of weeks ago. He had an incidental durotomy during the case, therefore his incision site was closed with superficial sutures. Overall, he has done very well since his surgery and is satisfied with the procedure. He has had some right-sided leg pain which is new since the surgery, but feels this has been waxing/waning in nature. He comes in today for suture removal. No new neurological deficits. The patient ambulates well and rises from a seated position without difficulty. His superficial running suture was removed over the incision site on his back. He tolerated the procedure well. I would like to follow up with Mervin again in 6 weeks for his 2nd postop visit. Fran Boo MD,PhD [facility] Coding Level of Care Code Global (35045) Diagnoses S/P lumbar microdiscectomy Z98.890
== END 2025-02-18 14:43 | disposition home or self-care (01) ==
LOC: HO.HNS 14:31
PROVIDERS: PCP Physician Assistant; Visit Provider Physician Assistant
DX: Z98.890 Other specified postprocedural states (principal)
CPT/HCPCS: 99024

== ENCOUNTER → 2025-02-18 14:30 | Outpatient (BNVA) | payer OTHER, SELFPAY | PROVIDERS: PCP Physician Assistant; Visit Provider Physician Assistant | DX: Z48.02 Encounter for removal of sutures (principal); Z98.890 Other specified postprocedural states | CPT/HCPCS: 99212 ==

== ENCOUNTER 2025-04-01 11:24 | Outpatient (AMB) | payer OTHER, SELFPAY ==
--- NOTE | 2025-04-01 11:30 | A.SPINEOV_ITS ---
Intake Visit Reasons: 2nd post op Intake Note: Mr. Corley is here today for his 2nd post op. Inbound Call Center Representative Required: No Allergies No Known Allergies Allergy (Verified 02/07/25 09:36) Assessment & Plan Assessment & Plan (1) S/P lumbar microdiscectomy: Code(s): Z98.890 - Other specified postprocedural states Category: Surgical Plan Mr Corley is 2 months out from his L4-5 microdiskectomy. He had great relief on the left side, but unfortunately still having some pain along his right hip into his right low back area. He is ready to go back to work tomorrow but does have some hesitation because he is still having this discomfort. We talked about the fact that he has now had 2 microdiskectomies and there may always be some degree of pain and discomfort just from the herniations and combination of scar tissue from healing from the surgeries. He is very young however and I am optimistic that he will get over this and time. We talked about the importance of core strength and posterior chain conditioning to help with long-term back health especially in light of the fact that he has a very physical job with [employer]. He is very interested in taking care of his body and I gave him a referral back to physical therapy so they can give him some instruction on how best to do this. If the pain becomes worse on the right side or starts shooting down the right leg I will get a postoperative MRI just to be sure there is no residual disc material. Rajan Boo MD, PhD [facility] Orders: Orders PT Evaluation and Treatment Today Z98.890 - Other specified postprocedural states Coding Level of Care Code Global (30172) Diagnoses S/P lumbar microdiscectomy Z98.890
== END 2025-04-01 12:00 | disposition home or self-care (01) ==
LOC: HO.HNS 11:24
PROVIDERS: PCP Physician Assistant; Visit Provider Physician Assistant
DX: Z98.890 Other specified postprocedural states (principal)
CPT/HCPCS: 99024

== ENCOUNTER → 2025-04-01 11:24 | Outpatient (BNVA) | payer OTHER, SELFPAY | PROVIDERS: PCP Physician Assistant; Visit Provider Physician Assistant | DX: M25.551 Pain in right hip (principal); M54.50 Low back pain, unspecified; Z98.890 Other specified postprocedural states | CPT/HCPCS: 99212 ==

== ENCOUNTER 2025-04-26 19:34 | Emergency (ER) | payer OTHER, SELFPAY ==
--- NOTE | ~2025-04-26 | XR_ITS ---
CLINICAL HISTORY: trauma Radiographs of the right hand, 3 views Comparison: None available Findings: Spiral fracture through the diaphysis of the 3rd metacarpal with up to 2 mm of displacement distally. Spiral fracture of the proximal to mid diaphysis of the 4th metacarpal without displacement. No intra-articular extension. No dislocation. The joint spaces are preserved without osteophytosis. Bone mineralization is normal. Soft tissue swelling. Impression: Fractures of the 3rd and 4th metacarpals. This document has been electronically signed by: Cassandra Khan MD on 04/26/2025 21:01:06
--- NOTE | ~2025-04-26 | XR_ITS ---
CLINICAL HISTORY: trauma Radiographs of the right wrist, 4 views Comparison: None available Findings: Obliquely oriented fractures of the diaphysis of the 3rd and 4th metacarpals. The osseous structures are otherwise intact. No dislocation. The joint spaces are preserved without osteophytosis. Bone mineralization is normal. Soft tissue swelling. Impression: Fracture of the 3rd and 4th metacarpals. This document has been electronically signed by: Cassandra Khan MD on 04/26/2025 21:00:18
[2025-04-26 19:47] VITALS: BP 123/78; PULSE 68; RESP 16; TEMP 36.2; O2SAT 98; BMI 26.3
--- NOTE | 2025-04-26 19:47 | ED.GENADULT ---
HPI - General Adult General Chief complaint: Extremity Injury, Upper Stated complaint: ? fracture rt hand Time Seen by Provider: 04/26/25 21:25 Source: patient Mode of arrival: ambulatory Limitations: no limitations History of Present Illness ED Provider: Dr. Hodan Foley HPI narrative: Patient comes to the emergency room complaining of pain in the right hand. Patient states that he was playing softball, he dove to catch a ball and landed with all his weight in his right hand. Patient believes he fracture something. Patient denies hitting his head or losing consciousness. No other injuries other than the hand. Patient took 2 tablets of ibuprofen prior to arrival with no significant pain relief. Related Data Home Medications ?Medication ?Instructions ?Recorded ?Confirmed albuterol sulfate 90 mcg/actuation 1 inh inhalation QID PRN asthma 02/07/25 02/07/25 aerosol inhaler (Ventolin HFA) Previous Rx's ?Medication ?Instructions ?Recorded lidocaine 5 % topical patch 1 patch topical DAILY 30 days #30 12/20/24 ea naproxen 500 mg tablet 500 mg PO BID PRN pain #14 tabs 12/20/24 oxycodone 5 mg tablet 5 mg PO Q8H PRN pain 4 days #12 12/20/24 tabs docusate sodium 100 mg capsule 100 mg PO BID #20 caps 02/07/25 (Colace) oxycodone 5 mg tablet 5 mg PO Q4H PRN pain #20 tabs 02/07/25 ibuprofen 600 mg tablet 600 mg PO Q8H PRN fever or pain 04/26/25 #30 tabs tramadol 50 mg tablet 50 mg PO BID PRN pain #7 tabs 04/26/25 Allergies Allergy/AdvReac Type Severity Reaction Status Date / Time No Known Allergies Allergy Verified 04/26/25 19:50 Review of Systems Review of Systems: Constitutional : No Weight loss, No Fever, No Chills, No Night Sweats, No Fatigue, No Malaise ENT/Mouth : No Hearing loss, No Ear Pain, No Nasal Congestion, No Sinus Pain, No Hoarseness, No sore throat, No Rhinorrhea, No Swallowing Difficulty Eyes: No Eye Pain, No Swelling, No Redness, No Foreign Body, No Discharge, No Vision Changes Cardiovascular : No Chest Pain, No SOB, No Dyspnea on Exertion, No Orthopnea, No Edema, No Palpitations Respiratory : No Cough, No Sputum, No Wheezing, No Smoke Exposure, No Dyspnea Gastrointestinal : No Nausea, No Vomiting, No Diarrhea, No Constipation, No abdominal Pain, No Hematochezia, No Melena Genitourinary : no irregular bleeding, No Dysuria, No Urinary Frequency, No Hematuria, No Urinary Incontinence, No Urgency, No Flank Pain, No Urinary Flow Changes, No Hesitancy Musculoskeletal : Complaining of right hand pain No Myalgias, No Joint Swelling Skin : No Skin Lesions, No rash Neuro : No Weakness, No Numbness, No Paresthesias, No Loss of Consciousness, No Dizziness, No Headache Psych : No Anxiety/Panic, No Depression, No SI/HI/AH/VH, No Social Issues, Heme/Lymph: No Bruising, No Bleeding,No Lymphadenopathy Endocrine : No Polyuria, No Polydipsia, No Temperature Intolerance REPLACED BY [facility] Past Medical History Medical History Arthritis Back pain History of cardiac murmur as a child Borderline hypercholesterolemia Asthma PTSD (post-traumatic stress disorder) Post laminectomy syndrome Surgical History History of back surgery Family History Family History Father No problems noted. Mother No problems noted. Brother No problems noted. Sister No problems noted. Social History Social History Housing: House Are you a primary director of health care marketing to a significant other at home: No Do you presently have visiting nurse or other home services: No Alcohol intake: current Alcohol intake frequency: holidays/special occasions only Alcohol type: beer and hard liquor Patient Tobacco Use Status: Never used Tobacco e-Cigarette/Vaping Use: Never Used Second Hand Smoke Exposure: No Substance Use Type: Marijuana service: No Current occupational status: employed Current occupation: [employer] [place] Current occupational exposures/hazards: No Cognitive needs: No Hearing needs: No Vision needs: No Physical Exam ED Vital Signs: Vital Signs - 24 hr 04/26/25 19:47 Temperature 97.2 F Pulse Rate 68 Respiratory Rate 16 Blood Pressure 123/78 Pulse Oximetry 98 Oxygen Delivery Method Room Air BMI result Body Mass Index 26.3 Const Other: Appearance: Alert. Oriented X3. No acute distress. Eyes: Pupils equal, round and reactive to light. ENT: Pharynx normal. Neck: Normal inspection. Neck supple. No lymph nodes noted. No crepitus CVS: Normal heart rate and rhythm. Pulses normal. Normal S1 and S2 Respiratory: No respiratory distress. Breath sounds normal. No Wheezing. No rales Abdomen: Soft and nontender. No rigidity. No distention. Skin: Skin warm and dry. Normal skin color. Normal skin turgor. Extremities: No lower extremity edema. patient's dorsum of the hand on the right side swollen, pain to palpation over the 3rd and 4th metacarpals. Patient able to flex and extend the fingers but hurts the dorsum of the hand. Neuro: Oriented X 3. No motor deficit. No sensory deficit. Moving all extremities. No slurred speech. CN 2 through 12 grossly intact Psych: calm, cooperative, normal affect Course Course Course Narrative: RME, this is a rapid medical exam performed by Oscar Padilla please refer to primary provider for complete H&P- 34 year old male presents for evaluation of right hand and wrist pain after falling on it while playing softball. Plan for x-rays Procedures Orthopedic Splinting/Casting Injury #1: Side: right Upper Extremity Injury Location: wrist and hand Upper Extremity Immobilizer: volar splint and ulnar gutter Medical Decision Making Medical Decision Making MDM Narrative: X-rays of the hand and the wrist show fractures of the 3rd and 4th metacarpals. patient's hand was put on an ulnar/volar splint patient instructed to follow-up with orthopedics. Patient was given a dose of p.o. tramadol here in the ED. Discussed with the patient the risks of using narcotics. Patient states that he will use him use judiciously Independent Interpretation I performed an independent interpretation of an: Plain X-Ray Radiology Impression Discussion of test interpretation with radiology: I have reviewed the radiologist's reading. Radiologist Impression: Spiral fracture through the diaphysis of the 3rd metacarpal with up to 2 mm of displacement distally. Spiral fracture of the proximal to mid diaphysis of the 4th metacarpal without displacement. No intra-articular extension. No dislocation. The joint spaces are preserved without osteophytosis. Bone mineralization is normal. Soft tissue swelling Critical Care Time Critical Care Time Critical Care Time: Yes Total Critical Care Time: 35 Attestation: I have personally provided critical care time. Time includes review of lab data, radiology results, discussion with consultants, and monitoring for potential decompensation. Intervention performed as documented. Discharge Plan Discharge Clinical Impression: Fracture of metacarpal Patient Disposition: Home, Self-Care Instructions: Hand Fracture (ED) Additional Instructions: Please follow-up with your primary care physician tomorrow. If you have any worsening or new symptoms, please return to the emergency room or call 911 Prescriptions: New ibuprofen 600 mg tablet 600 mg PO Q8H PRN (Reason: fever or pain) Qty: 30 0RF tramadol 50 mg tablet 50 mg PO BID PRN (Reason: pain) Qty: 7 0RF No Action albuterol sulfate [Ventolin HFA] 90 mcg/actuation HFA aerosol inhaler 1 inh inhalation QID PRN (Reason: asthma) docusate sodium [Colace] 100 mg capsule 100 mg PO BID Qty: 20 0RF oxycodone 5 mg tablet 5 mg PO Q4H PRN (Reason: pain) Qty: 20 0RF Rx Instructions: Partial Fill upon patient request. naproxen 500 mg tablet 500 mg PO BID PRN (Reason: pain) Qty: 14 0RF oxycodone 5 mg tablet 5 mg PO Q8H PRN (Reason: pain) 4 Days Qty: 12 0RF Rx Instructions: Partial Fill upon patient request. lidocaine 5 % adhesive patch,medicated 1 patch topical DAILY 30 Days Qty: 30 1RF Rx Instructions: leave on most painful area for up to 12 hrs Referrals: Meli Jovel PA-C [Physician Creative Project Manager, Orthopedics] Print Language: Swedish
[2025-04-26 22:10] VITALS: BP 130/81; PULSE 59; RESP 16; TEMP 36.8; O2SAT 98
[2025-04-26 22:30] VITALS: BP 130/81; PULSE 59; RESP 16; TEMP 36.8; O2SAT 98
== END 2025-04-26 22:31 | disposition home or self-care (01) ==
PROVIDERS: Emergency Provider Emergency Medicine; PCP Physician Assistant
DX: S62.392A Other fracture of third metacarpal bone, right hand, initial encounter for closed fracture (principal); S62.394A Other fracture of fourth metacarpal bone, right hand, initial encounter for closed fracture; W21.07XA Struck by softball, initial encounter; Y93.64 Activity, baseball; Y92.320 Baseball field as the place of occurrence of the external cause; Y99.8 Other external cause status
CPT/HCPCS: 29125; 73110; 73130; 99284; 99291

== ENCOUNTER → 2025-04-26 19:47 | Outpatient (BNV) | payer OTHER, SELFPAY | PROVIDERS: Emergency Provider Emergency Medicine; PCP Physician Assistant; Visit Provider Radiology Diagnostic Radiology | DX: S62.302A Unspecified fracture of third metacarpal bone, right hand, initial encounter for closed fracture (principal); S62.304A Unspecified fracture of fourth metacarpal bone, right hand, initial encounter for closed fracture | CPT/HCPCS: 73110; 73130 ==

== ENCOUNTER 2025-05-02 09:48 | Outpatient (REF) | payer OTHER, SELFPAY ==
--- NOTE | ~2025-05-02 | XR_ITS ---
EXAMINATION: XR HAND 3 OR MORE VIEWS RIGHT HISTORY: M79.641 - Pain in right hand COMPARISON: Comparison is made with the prior examination dated 04/26/2025. FINDINGS: Three views of the right hand are submitted. Osseous mineralization is normal. Again seen are minimally displaced oblique fractures of the 3rd and 4th metacarpals. The fracture lines remain visible. The joint spaces are preserved. The soft tissues are unremarkable. XR/XR hand RT min 3V IMPRESSION: Minimally displaced oblique fractures of the 3rd and 4th metacarpals without change. Electronically signed by: Alfredo Osman MD 05/02/2025 11:16 AM EDT
== END 2025-05-02 09:49 | disposition home or self-care (01) ==
LOC: HO.HOSX 09:48
DX: S62.322A Displaced fracture of shaft of third metacarpal bone, right hand, initial encounter for closed fracture (principal); S62.324A Displaced fracture of shaft of fourth metacarpal bone, right hand, initial encounter for closed fracture; X58.XXXA Exposure to other specified factors, initial encounter; Y93.64 Activity, baseball
CPT/HCPCS: 26600; 73130; 99202

== ENCOUNTER 2025-05-02 10:37 | Outpatient (AMB) | payer OTHER, SELFPAY ==
[2025-05-02 10:52] VITALS: BMI 26.1
--- NOTE | 2025-05-02 10:52 | A.OFFVIS_ITS ---
Vital Signs 05/02/25 10:52 Height 5 ft 10 in Weight 182 lb BMI 26.1 Intake Visit Reasons: ED f/u RT hand fx Intake Note: Mervin is a 34 year old left hand dominant male who presents today for a fracture care visit of his right hand injury, DOI: 04/26/25. Per ED note patient states that he was playing softball, he dove to catch a ball and landed with all his weight in his right hand. Seen in ED same where xrays where taken and a fracture was confirmed in his middle and ring finger. He was placed in a splint. 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 Denies numbness or tingling. Allergies No Known Allergies Allergy (Verified 05/02/25 10:54) HPI HPI ED f/u RT hand fx: Details: Mervin is a 34 year old left hand dominant male who presents today for a f racture care visit of his right hand injury, DOI: 04/26/25. Per ED note patient states that he was playing softball, he dove to catch a ball and landed with all his weight in his right hand. Seen in ED same where xrays where taken and a fracture was confirmed in his middle and ring finger. He was placed in a splint. 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 Denies numbness or tingling. [facility] Medical History Arthritis Back pain History of cardiac murmur as a child Borderline hypercholesterolemia Asthma PTSD (post-traumatic stress disorder) Post laminectomy syndrome Surgical History History of back surgery Family History Father No problems noted. Mother No problems noted. Brother No problems noted. Sister No problems noted. 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 Neuro: Normal sensation of the tips of all digits of the right hand at this time Vascular: Cap refill brisk Pain: Minimal tenderness to palpation noted of the right hand particularly over the 3rd and 4th metacarpals Skin: No lacerations or abrasions. General: Edema and ecchymosis noted of the dorsal right hand No erythema or evidence of infection Psych: Appears grossly normal Affect normal Attitude cooperative Office Procedures Casting/Splints 38156-Fsslbam Splint Application Procedure code (CPT) selection complete Results Reviewed Results Reviewed: X-rays obtained in the office today and independently reviewed by me, Joe White PA-C, demonstrate minimally displaced fractures of both the 3rd and 4th metacarpal shaft of the right hand. Assessment & Plan Assessment & Plan (1) Fracture of shaft of third metacarpal bone of right hand: Code(s): S62.322A - Displaced fracture of shaft of third metacarpal bone, right hand, initial encounter for closed fracture Category: Medical (2) Fracture of shaft of fourth metacarpal bone of right hand: Code(s): S62.324A - Displaced fracture of shaft of fourth metacarpal bone, right hand, initial encounter for closed fracture Category: Medical Plan 1. Right 3rd and 4th metacarpal shaft fractures Date of injury 04/26/2025 Patient is educated about this injury Patient is educated about the typical recovery course At this time, due to the minimally displaced nature of his fractures, I feel that we can start conservative management of his injury However, close follow-up will be necessary as the fracture pattern is unstable and he may require surgical intervention if fractures displaced further Patient is placed into a 3 finger ulnar gutter splint at this time Educated on proper splint care and precautions Follow-up in 1 week with repeat x-rays for reassessment, sooner with any acute concerns Orders: Orders XR hand RT min 3V Today M79.641 - Pain in right hand Coding Level of Care Code New Pt Level 3 (18361) Diagnoses Fracture of shaft of third metacarpal bone of right hand S62.322A Fracture of shaft of fourth metacarpal bone of right hand S62.324A CPT Codes Splint - CPT: 33488-Xoniioz Splint Application ([id number])
== END 2025-05-02 11:35 | disposition home or self-care (01) ==
LOC: HO.HOS 10:38
PROVIDERS: PCP Physician Assistant
DX: S62.322A Displaced fracture of shaft of third metacarpal bone, right hand, initial encounter for closed fracture (principal); S62.324A Displaced fracture of shaft of fourth metacarpal bone, right hand, initial encounter for closed fracture
CPT/HCPCS: 26600; 99203

== ENCOUNTER → 2025-05-02 10:40 | Outpatient (BNV) | payer OTHER, SELFPAY | PROVIDERS: Visit Provider Radiology Diagnostic Radiology | DX: S62.302A Unspecified fracture of third metacarpal bone, right hand, initial encounter for closed fracture (principal); S62.304A Unspecified fracture of fourth metacarpal bone, right hand, initial encounter for closed fracture | CPT/HCPCS: 73130 ==

== ENCOUNTER 2025-05-14 10:29 | Outpatient (REF) | payer OTHER, SELFPAY ==
--- NOTE | ~2025-05-14 | XR_ITS ---
EXAMINATION: XR HAND, RIGHT CLINICAL INFORMATION: M79.641 - Pain in right hand , follow-up fractures COMPARISON: April 26 and May 02, 2025 TECHNIQUE: PA, lateral, and oblique views of the right hand. FINDINGS: Again seen are oblique fractures across the diaphysis of the third and fourth metacarpals, more extensive at the third. There is periosteal new bone formation. There is an early bone formation across the medullary canal. There is no change in alignment or offset. XR/XR hand RT min 3V IMPRESSION: Evidence of early healing. Electronically signed by: Dedrick Mistry MD 05/14/2025 01:29 PM EDT
--- OUTSIDE RECORDS SUMMARY | 2025-05-15 11:24 | XMS_ITS | Clinical Summary ---
Author Organization [facility] Address [address] [phone] Phone Care Team Providers Care Land Developer Name Role Phone Cuco Ledesma Primary Care [...] NSPG PCP [employer] Care Teams Land Developer Relationship Specialty Start Date End Date Cuco Ledesma PA [address] [place] [address] PCP - General 12/28/21 Additional Source Comments The information contained in this document represents components of the legal health record. It is not the complete legal health record.[facility]
== END 2025-05-14 10:30 | disposition home or self-care (01) ==
LOC: HO.HOSX 10:29
PROVIDERS: Visit Provider Orthopaedic Surgery
DX: S62.322D Displaced fracture of shaft of third metacarpal bone, right hand, subsequent encounter for fracture with routine healing (principal); S62.324D Displaced fracture of shaft of fourth metacarpal bone, right hand, subsequent encounter for fracture with routine healing; M79.641 Pain in right hand; X58.XXXD Exposure to other specified factors, subsequent encounter
CPT/HCPCS: 73130; 99212

== ENCOUNTER 2025-05-14 11:19 | Outpatient (AMB) | payer OTHER, SELFPAY ==
--- NOTE | 2025-05-14 11:31 | A.OFFVIS_ITS ---
Vital Signs 05/14/25 11:33 Height 5 ft 10 in Weight 182 lb BMI 26.1 Intake Visit Reasons: OV-f/u RT hand fx w/ xray Intake Note: Mervin 34 yr old left hand dominant male presents today for his follow up visit for his right 3rd and 4th metacarpal shaft fractures Date of injury 04/26/2025. At his last visit he was placed in a 3 finger ulnar gutter splint and was advise to keep splint on, clean and dry. Currently states he has pain when moving his pinky and mild swelling. Allergies No Known Allergies Allergy (Verified 05/14/25 11:39) HPI HPI OV-f/u RT hand fx w/ xray: Details: Mervin is a 34 year old left hand dominant man who returns for a right 3rd & 4th metacarpal fractures. he fell while playing Softball, landing on his right hand, DOI: 04/26/25. He was seen in the ED & here, and placed in a 3 finger ulnar gutter splint. He complains of pain & swelling in his fingers. He also complains of pain in his small finger, which he says might be from his splint. 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 [facility] Medical History Arthritis Back pain History of cardiac murmur as a child Borderline hypercholesterolemia Asthma PTSD (post-traumatic stress disorder) Post laminectomy syndrome Surgical History History of back surgery Family History Father No problems noted. Mother No problems noted. Brother No problems noted. Sister No problems noted. 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 Current occupational exposures/hazards: No Cognitive needs: No Hearing needs: No Vision needs: No Review of Systems Const All systems reviewed & are unremarkable except as noted in HPI and below Physical Exam Vital Signs: BMI result Body Mass Index 26.1 Const General: no acute distress and alert Orientation/consciousness: patient oriented x3 Neuro General: patient oriented x3 Extrem Other: Evaluation of Right Upper Extremity: The patient is alert, oriented, and in no acute distress Neuro: Median, Ulnar, Radial nerves motor and sensory intact and sensation is normal to the tips of all digits Vascular: Cap refill brisk ROM: With encouragement he could bring his fingertips to ~2cm from his palm and back into extension No rotational mal-alignment TTP over the fracture site Hand swelling & resolving ecchymosis in the palm Radiographs: 3 views of the right hand were taken and viewed by me today in clinic. They show a 3rd metacarpal shaft fracture, mildly displaced with some shortening, and a 4th metacarpal shaft fracture, non-displaced, with satisfactory fracture alignment and some evidence of interval bony healing. Psych Appearance: grossly normal Affect: normal affect Attitude: cooperative Office Procedures AMB Fracture Care Details: Fracture care metacarpal fractures x2 = 82884 x2 Fracture Billing Code: Fracture Billing Code Assessment & Plan Assessment & Plan (1) Fracture of shaft of third metacarpal bone of right hand: Code(s): S62.322A - Displaced fracture of shaft of third metacarpal bone, right hand, initial encounter for closed fracture Category: Medical (2) Fracture of shaft of fourth metacarpal bone of right hand: Code(s): S62.324A - Displaced fracture of shaft of fourth metacarpal bone, right hand, initial encounter for closed fracture Category: Medical Plan Assessment & Plan: 1. Right 3rd metacarpal shaft fracture, mildly displaced 2. Right 4th metacarpal shaft fracture, non-displaced S/P fall, DOI: ~04/26/25 I educated him about this condition I discussed operative and non-operative treatment options We will continue to manage this non-operatively, and he is in agreement He was fitted for a velcro wrist splint, and his middle & ring fingers were Dia-taped, to be worn like a cast except for showering for the next 2 weeks. He will continue to dia tape for 4 weeks, and wear his splint out of the house with daily activities for the following 2 weeks. He will remove his splint at home at rest to work on ROM exercises I discussed activity modifications, he is to lift nothing heavier than a cellphone for the next 3 weeks. He is to avoid any heavy impact activities or falls for the next 6-8 weeks. He will work on gentle finger ROM exercises at home He was given a note for work to continue light duty, with a 2lb weight limit with his RUE for the next 4 weeks He will follow up in 3-4 weeks, with X-rays, 3V R hand, OOP ROM check & discuss work status Scribed for Shweta Greenfield MD by James Taylor, medical geneticist, on 05/14/25 at 11:40 AM, EST. Orders: Orders XR hand RT min 3V Today M79.641 - Pain in right hand Coding Level of Care Code Est Pt Level 4 (05937) Diagnoses Fracture of shaft of third metacarpal bone of right hand S62.322A Fracture of shaft of fourth metacarpal bone of right hand S62.324A CPT Codes Fracture Care - Fracture Billing Code: Fracture Billing Code ([id number])
[2025-05-14 11:33] VITALS: BMI 26.1
--- OUTSIDE RECORDS SUMMARY | 2025-05-14 12:32 | XMS_ITS | Clinical Summary ---
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 Not on bulmaro e 02/12/2023 Are you concerned about learning? Not on file 02/12/2023 No 02/12/2023 No 02/12/2023 Digital Access Answer Date Recorded No 03/13/2023 No 03/13/2023 Reliable internet access at home? Not on file 03/13/2023 Device with a working camera? Not on file Sex and Gender Information Value Date Recorded Sex Assigned at Not on file Legal Sex Male 3:17 PM EST Gender Identity Not on file Sexual Orientation Not on file Last Filed Vital Signs Vital Sign Reading Time Taken Comments Blood Pressure 136/82 04/05/2024 2:59 PM EDT Pulse 52 04/05/2024 2:59 PM EDT Temperature 36.7 C (98 F) 01/27/2022 10:47 AM EDT Respiratory Rate 16 04/05/2024 2:59 PM EDT Oxygen Saturation 98% 04/05/2024 2:59 PM EDT Inhaled Oxygen Concentration - - Weight 77.1 kg (170 lb) 04/05/2024 2:59 PM EDT Height 177.8 cm (5' 10 ) 04/05/2024 2:59 PM EDT Body Mass Index 24.39 04/05/2024 2:59 PM EDT Plan of Treatment Health Maintenance Due Date Last Done Comments Adult Td,Tdap Booster 1991 DEPRESSION SCREENING 2003 SMOKING Hx and SMOKELESS TOB ACCO SCREENING 2004 HEPATITIS C SCREENING 2009 HIV ONE-TIME SCREENING (18-6 5 YEARS) 2009 COVID-19 VACCINE (2023-2 5 season) 2024 HEPATITIS A VACCINES Aged Out No long er eligible based on patient's age to complete this topic HIB VACCINES Aged Out No longer eligi ble based on patient's age to complete this topic MENINGOCOCCAL VACCINES (ACWY) Aged Out No longer eligible based on patient's age to complete this topic MENINGOCOCCAL VACCINES (B) Aged Out N o longer eligible based on patient's age to complete this topic PNEUMOCOCCAL VACCINES (0-49 years) Aged Out No longer eligible based on patient's age to complete this topic Medical Devices Not on file Insurance WELLSENSE NON NSPG PCP S[employer]VER [employer]ITY [employer] WELLSENSE NON NSPG PCP [employer] WELLSENSE NON NSPG PCP SILVER [employer]ITY CONNECTORCARE WELLSENSE NON NSPG PCP SILVER CLARITY CONNECTORCARE WELLSENSE NON NSPG PCP SILVER CLARITY CONNECTORCARE WELLSENSE NON NSPG PCP SILVER CLARITY CONNECTORCARE WELLSENSE NON NSPG PCP SILVER CL[employer]ITY CONNECTORCARE WELLSENSE NON NSPG PCP SILVER [employer]ITY [employer] WELLSENSE NON NSPG PCP [employer] Care Teams Drywall Mechanic Relationship Specialty Start Date End Date Cuco Ledesma PA [address] [place] [address] PCP - General 12/28/21 Additional Source Comments The information contained in this document represents components of the legal health record. It is not the complete legal health record.[facility]
== END 2025-05-14 12:13 | disposition home or self-care (01) ==
LOC: HO.HOS 11:20
PROVIDERS: PCP Physician Assistant; Visit Provider Orthopaedic Surgery
DX: S62.322A Displaced fracture of shaft of third metacarpal bone, right hand, initial encounter for closed fracture (principal); S62.324A Displaced fracture of shaft of fourth metacarpal bone, right hand, initial encounter for closed fracture
CPT/HCPCS: 99024

== ENCOUNTER → 2025-05-14 11:21 | Outpatient (BNV) | payer OTHER, SELFPAY | PROVIDERS: Visit Provider Radiology Diagnostic Radiology | DX: S62.302A Unspecified fracture of third metacarpal bone, right hand, initial encounter for closed fracture (principal); S62.304A Unspecified fracture of fourth metacarpal bone, right hand, initial encounter for closed fracture | CPT/HCPCS: 73130 ==

== ENCOUNTER 2025-06-11 08:24 | Outpatient (REF) | payer OTHER, SELFPAY ==
--- NOTE | ~2025-06-11 | XR_ITS ---
EXAMINATION: XR HAND, RIGHT CLINICAL INFORMATION: M79.641 - Pain in right hand COMPARISON: 05/14/2025, 05/02/2025, 04/26/2025. TECHNIQUE: PA, lateral, and oblique views of the right hand. FINDINGS: Redemonstration of spiral fractures of the mid diaphyses of the third and fourth metacarpals. Fracture lines are slightly less distinct and there is periosteal new bone formation surrounding the fracture margins consistent with healing. There is stable anatomical alignment. No additional fracture or bone lesion. There is improved soft tissue swelling dorsally. XR/XR hand RT min 3V IMPRESSION: 1. Continued healing of minimally displaced spiral fractures of the third and fourth metacarpals. Stable anatomical alignment. Electronically signed by: Maico Pollock MD 06/11/2025 09:29 AM EDT
--- OUTSIDE RECORDS SUMMARY | 2025-06-13 09:01 | XMS_ITS | Clinical Summary ---
Author Organization [facility] Address [address] [phone] Phone Care Team Providers Care Jalousie Installer Name Role Phone Cuco Ledesma Primary Care [...] NSPG PCP [employer] Care Teams Jalousie Installer Relationship Specialty Start Date End Date Cuco Ledesma PA [address] [place] [address] PCP - General 12/28/21 Additional Source Comments The information contained in this document represents components of the legal health record. It is not the complete legal health record.[facility]
== END 2025-06-11 08:25 | disposition home or self-care (01) ==
LOC: HO.HOSX 08:24
PROVIDERS: Visit Provider Orthopaedic Surgery
DX: S62.322D Displaced fracture of shaft of third metacarpal bone, right hand, subsequent encounter for fracture with routine healing (principal); S62.324D Displaced fracture of shaft of fourth metacarpal bone, right hand, subsequent encounter for fracture with routine healing; M79.641 Pain in right hand; W19.XXXD Unspecified fall, subsequent encounter; Y93.64 Activity, baseball
CPT/HCPCS: 73130; 99212

== ENCOUNTER 2025-06-11 09:08 | Outpatient (AMB) | payer OTHER, SELFPAY ==
[2025-06-11 09:12] VITALS: BMI 26.1
--- NOTE | 2025-06-11 09:12 | MHC.OFFVIS ---
Vital Signs 06/11/25 09:12 Height 5 ft 10 in Weight 182 lb BMI 26.1 Intake Visit Reasons: OV-RT hand fx w/ xray-4 WKS Intake Note: Mervin 34 yr old left hand dominant male presents today for his follow up visit for his right 3rd and 4th metacarpal shaft fractures Date of injury 04/26/2025. At his last visit he was given a work note with 2 lb weight limit and was advise to work on gentle ROM. Currently states he has been working on his ROM along with a stress ball. States he feels limited in making a fist. Xrays update in office. Allergies No Known Allergies Allergy (Verified 06/11/25 09:23) HPI HPI OV-RT hand fx w/ xray-4 WKS: Details: Mervin is a 34 year old left hand dominant man who returns for a right 3rd & 4th metacarpal fractures. He fell while playing Softball, landing on his right hand, DOI: 04/26/25. He complains of some pain & limited ROM of his hand. He says he has been working on ROM exercises at home, and has been using a stress ball. He has been splinting & Ojsué-taping his fingers as instructed. 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 He was given a note to return with a 2lb weight limit. [facility] Medical History Arthritis Back pain History of cardiac murmur as a child Borderline hypercholesterolemia Asthma PTSD (post-traumatic stress disorder) Post laminectomy syndrome Surgical History History of back surgery Family History Father No problems noted. Mother No problems noted. Brother No problems noted. Sister No problems noted. 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 Current occupational exposures/hazards: No Cognitive needs: No Hearing needs: No Vision needs: No Review of Systems Const All systems reviewed & are unremarkable except as noted in HPI and below Physical Exam Vital Signs: BMI result Body Mass Index 26.1 Const General: no acute distress and alert Orientation/consciousness: patient oriented x3 Neuro General: patient oriented x3 Extrem Other: Evaluation of Right Upper Extremity: The patient is alert, oriented, and in no acute distress Neuro: Median, Ulnar, Radial nerves motor and sensory intact and sensation is normal to the tips of all digits Vascular: Cap refill brisk ROM: He can make a fist and extend all his digits, however when I ask him to squeeze my finger his 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 Tightness dorsal aspect of his distal phalanxes when making a fist No rotational mal-alignment Fracture site NTTP Resolved swelling & ecchymosis Radiographs: 3 views of the right hand were taken and viewed by me today in clinic. They show a 3rd metacarpal shaft fracture, mildly displaced with some shortening with some evidence of interval bony healing but the fracture is still visible, and a 4th metacarpal shaft fracture, non-displaced, with satisfactory fracture alignment and good evidence of interval bony healing. Psych Appearance: grossly normal Affect: normal affect Attitude: cooperative Assessment & Plan Assessment & Plan (1) Fracture of shaft of third metacarpal bone of right hand: Code(s): S62.322A - Displaced fracture of shaft of third metacarpal bone, right hand, initial encounter for closed fracture Category: Medical (2) Fracture of shaft of fourth metacarpal bone of right hand: Code(s): S62.324A - Displaced fracture of shaft of fourth metacarpal bone, right hand, initial encounter for closed fracture Category: Medical Plan Assessment & Plan: 1. Right 3rd metacarpal shaft fracture, mildly displaced 2. Right 4th metacarpal shaft fracture, non-displaced S/P fall, DOI: ~04/26/25 I educated him about this condition We will continue to manage this non-operatively, and he is in agreement He will discontinue his splint at this time I discussed activity modifications, he is to lift lightweight objects with his RUE and slowly increase to medium weight activities over the next 3-4 weeks. He is to avoid any heavy impact activities or falls for the next 3-5 weeks. He will work on finger ROM exercises at home. He should stop using his stress ball at home I ordered OT hand therapy to work on ROM, strengthening, & normalizing function He was given a note for work to continue light duty, with a 10lb weight limit with his RUE for the next 6 weeks He will follow up in 6 weeks for a ROM check, no X-rays unless he has new pain Scribed for Shweta Greenfield MD by James Taylor, certified medical transcriptionist, on 06/11/25 at 9:40 AM, EST. Orders: Orders OT Evaluation and Treatment Today S62.322A - Displaced fracture of shaft of third metacarpal bone, right hand, initial encounter for closed fracture, S62.324A - Displaced fracture of shaft of fourth metacarpal bone, right hand, initial encounter for closed fracture XR hand RT min 3V Today M79.641 - Pain in right hand Coding Level of Care Code Global (27011) Diagnoses Fracture of shaft of third metacarpal bone of right hand S62.322A Fracture of shaft of fourth metacarpal bone of right hand S62.324A
--- OUTSIDE RECORDS SUMMARY | 2025-06-11 09:31 | XMS_ITS | Clinical Summary ---
Author Organization [facility] Address [address] [phone] Phone Care Team Providers Care Breakfast Host Name Role Phone Cuco Ledesma Primary Care [...] NSPG PCP [employer] Care Teams Breakfast Host Relationship Specialty Start Date End Date Cuco Ledesma PA [address] [place] [address] PCP - General 12/28/21 Additional Source Comments The information contained in this document represents components of the legal health record. It is not the complete legal health record.[facility]
== END 2025-06-11 09:56 | disposition home or self-care (01) ==
LOC: HO.HOS 09:09
PROVIDERS: Visit Provider Orthopaedic Surgery
DX: S62.322A Displaced fracture of shaft of third metacarpal bone, right hand, initial encounter for closed fracture (principal); S62.324A Displaced fracture of shaft of fourth metacarpal bone, right hand, initial encounter for closed fracture
CPT/HCPCS: 99024

== ENCOUNTER → 2025-06-11 09:11 | Outpatient (BNV) | payer OTHER, SELFPAY | PROVIDERS: Visit Provider Radiology Diagnostic Radiology | DX: M79.641 Pain in right hand (principal) | CPT/HCPCS: 73130 ==

== ENCOUNTER 2025-07-12 07:58 | Outpatient (RCR) | payer OTHER, SELFPAY ==
--- NOTE | 2025-06-24 10:21 | MHC.OT.EP ---
[facility] Office [address] [facility] [phone] F: [phone] F: [phone] Occupational Therapy Plan of Care Patient Name: Mervin Corley Date of Evaluation: 06/24/25 Diagnosis: Pain Location: R ulnar side of hand Pain Score: 1 Pain Scale Used: Numeric (0 - 10) Aggravating Factors: gripping, wake up in the morning Alleviating Factors: not needed Assessment: Pt is a 34 yr old L hand dominant male who injured his R hand while playing softball on 04/26/25. He was catching the ball when he felt his digits hyperextend. He left right away and went to the ED where he was dx w/ displaced fractures of the 3rd and 4th metacarpal bones. Pt presents today w/out edema, full ROM, but decreased strength and functional use of his R hand. He is concerned in regards to stiffness in his wrist and hand as well as weakness. He would benefit from skilled OT Therapy to address his deficits and return to his PLOF. Frequency and Duration: The patient will be seen 1 x a week for 4 weeks Short Term Goals: SEE BELOW [facility] Goals: Pt will be compliant w/ his HEP Pt will gain 20 lbs of horser up strength (55 lbs) Pt will deny pain w/ active use of his R hand Treatment Plan: Therapeutic Exercise Therapeutic Activity Home Exercise Program Neuro Re-ed Patient Education ADL Training Ultrasound NMES Iontophoresis Paraffin Fluidotherapy MHP Cold Packs Joint Mobilization Soft Tissue Mobilization Kinesiotaping pt will return to therapy in 2 weeks to assess strength and need for therapy Electronically Signed By: Shannon Kim OTR/L Please Sign and return to therapist. Thank you once again for your referral.
== END 2025-08-14 11:23 | disposition home or self-care (01) ==
LOC: HO.OT 07:58
PROVIDERS: PCP Physician Assistant; Visit Provider Orthopaedic Surgery
DX: S62.322D Displaced fracture of shaft of third metacarpal bone, right hand, subsequent encounter for fracture with routine healing (principal); S62.324D Displaced fracture of shaft of fourth metacarpal bone, right hand, subsequent encounter for fracture with routine healing
CPT/HCPCS: 97110; 97140; 97165; 97535